=== PATIENT | male | born 1965 | race Two or more races ===

== ENCOUNTER 2021-08-10 17:31 | Emergency (ER) | payer MEDICARE, MEDICAID ==
[~2021-08-10] VITALS: Ht 172.7 cm; Wt 145.1 kg
[2021-08-10] MEDS ORDERED: HYDROcodone-ACET 5/325MG TAB ONE (19:48)
[2021-08-10 21:08] LABS: Basophils # (auto) 0.1 10 ^3/uL (0-0.2); Basophils % (auto) 1.4 % (0.0-2.0); Eosinophils # (auto) 0.2 10 ^3/uL (0-0.8); Eosinophils % (auto) 2.4 % (0.0-7.0); Hematocrit 33.6 % (41.0-53.0); Hemoglobin 11.5 g/dL (13.5-17.5); Lymphocytes # (auto) 1.6 10 ^3/uL (0.4-5.4); Lymphocytes % (auto) 20.1 % (10.0-50.0); Mean Corpuscular Hemoglobin 29.3 pg (28.0-32.0); Mean Corpuscular Hgb Conc. 34.1 g/dL (32.0-36.0); Mean Corpuscular Volume 86.1 fL (80.0-100.0); Monocytes # (auto) 0.5 10 ^3/uL (0-1.3); Monocytes % (auto) 6.7 % (0.0-12.0); Neutrophils # (auto) 5.4 10 ^3/uL (1.6-8.6); Neutrophils % (auto) 69.4 % (37.0-80.0); Nucleated Red Blood Cells % 0.1 %; Red Blood Cells 3.91 10^6/uL (4.5-5.90); Red Cell Distribution Width 16.2 % (11.8-14.3); White Blood Cell 7.8 10^3/uL (4.4-10.8)
[2021-08-10 21:26] LABS: Albumin 3.1 g/dL (3.4-5.0); Calcium 8.4 mg/dL (8.5-10.1); Magnesium 1.9 mg/dL (1.6-2.6); Potassium 4.1 mmol/L (3.5-5.1)
[2021-08-10 21:29] LABS: BUN/Creatinine Ratio 11.6; Bilirubin, Total 0.6 mg/dL (0.2-1.0); Total Protein 8.8 g/dL (6.4-8.2)
[2021-08-10 21:43] LABS: Urine Bacteria FEW /hpf (None Seen); Urine Blood TRACE /uL (Negative); Urine Hyaline Cast FEW /lpf (0 - 2); Urine Mucus FEW (None Seen); Urine Specific Gravity 1.019 (1.001-1.035); Urine WBC 6 /hpf (0 - 3)
[2021-08-10 22:20] VITALS: BP 110/64
[2021-08-10] MEDS ORDERED: cefTRIAXone W LIDOCAINE 1 GM IM IM ONE (22:30)
[2021-08-10] MEDS ORDERED: METR500T PO (22:35)
[2021-08-10] MEDS ORDERED: CIPR-173 PO (22:35)
[2021-08-10] MEDS ORDERED: PERCOT PO (22:35)
[2021-08-10] MEDS ORDERED: ONDA-144 PO (22:35)
[2021-08-10] MEDS ORDERED: HYDROmorphone HCL 2 MG/ML VL/or syr IM ONE (22:45)
[2021-08-10] MEDS ORDERED: KETOROLAC TROMETH 30 MG/ML 1ML VIAL IV ONE (23:00)
[2021-08-10] MEDS ORDERED: cefTRIAXone 1GM/50ML D5W 50 ML IV ONE (23:00)
== END 2021-08-10 23:52 | disposition home or self-care (01) ==
LOC: ER 17:31 → EDBD 17:31 → ER 23:52
DX: K57.30 Diverticulosis of large intestine without perforation or abscess without bleeding (principal); N39.0 Urinary tract infection, site not specified
CPT/HCPCS: 36415; 74176; 80053; 81001; 83690; 83735; 84484; 85025; 93005; 96365; 96375; 99285; J0696; J1885

== ENCOUNTER 2021-08-15 08:37 | Inpatient (IN) | payer MEDICARE, MEDICAID ==
[~2021-08-15] VITALS: Ht 172.7 cm; Wt 139.9 kg
[~2021-08-15 08:37] MED LIST: CIPR-173 PO; METR500T PO; ONDA-144 PO; PERCOT PO
[2021-08-15 10:26] LABS: Basophils # (auto) 0.2 10 ^3/uL (0-0.2); Basophils % (auto) 4.2 % (0.0-2.0); Eosinophils # (auto) 0 10 ^3/uL (0-0.8); Hematocrit 42.1 % (41.0-53.0); Lymphocytes # (auto) 0.6 10 ^3/uL (0.4-5.4); Lymphocytes % (auto) 13.8 % (10.0-50.0); Mean Corpuscular Hemoglobin 32.8 pg (28.0-32.0); Mean Corpuscular Hgb Conc. 33.4 g/dL (32.0-36.0); Mean Corpuscular Volume 98.2 fL (80.0-100.0); Monocytes # (auto) 0.3 10 ^3/uL (0-1.3); Monocytes % (auto) 5.9 % (0.0-12.0); Neutrophils # (auto) 3.3 10 ^3/uL (1.6-8.6); Neutrophils % (auto) 75.1 % (37.0-80.0); Red Blood Cells 4.28 10^6/uL (4.5-5.90); Red Cell Distribution Width 16.2 % (11.8-14.3); White Blood Cell 4.4 10^3/uL (4.4-10.8)
[2021-08-15 10:49] LABS: Potassium 5.1 mmol/L (3.5-5.1)
[2021-08-15 10:58] LABS: Albumin 3.9 g/dL (3.4-5.0); BUN/Creatinine Ratio 6.2; Bilirubin, Total 0.9 mg/dL (0.2-1.0); Calcium 10.2 mg/dL (8.5-10.1)
[2021-08-15] MEDS ORDERED: ENOXAPARIN SOD 100 MG/1 ML SYRINGE SC ONE (13:00)
[2021-08-15] MEDS ORDERED: ONDANSETRON HCL 4 MG/2 ML VIAL IV ONE (13:00)
[2021-08-15] MEDS ORDERED: FUROSEMIDE 40 MG/4 ML VIAL IV ONE (13:00)
[2021-08-15] MEDS ORDERED: MORPHINE SULFATE 4 MG/ML SYR/VIAL IV ONE (13:00)
[2021-08-15] MEDS ORDERED: BUMETANIDE 2.5mg/10ml (0.25 mg/ml) INJ IV ONE (14:00)
[2021-08-15] MEDS ORDERED: NITROGLYCERIN 0.4 MG SL TAB SL PRN (14:15)
[2021-08-15] MEDS ORDERED: MORPHINE SULFATE INJ 2 MG/ml SYRG IV PRN ×2 (14:15→17:45)
[2021-08-15 19:07] LABS: Urine Bacteria NONE SEEN /hpf (None Seen); Urine Blood 2+ /uL (Negative); Urine Mucus FEW (None Seen); Urine Specific Gravity 1.016 (1.001-1.035); Urine WBC 4 /hpf (0 - 3)
[2021-08-15] MEDS ORDERED: LORazepam 0.5 MG TAB PO PRN (20:45)
[2021-08-15] MEDS ORDERED: DOCUSATE SOD 100 MG CAP PO PRN (20:45)
[2021-08-15] MEDS ORDERED: ONDANSETRON HCL 4 MG/2 ML VIAL IV PRN (20:45)
[2021-08-15] MEDS ORDERED: SODIUM CHLORIDE 0.9% 1,000 ML IV SCH (20:45)
[2021-08-15] MEDS ORDERED: hydrALAZINE HCL 20 MG/ML VL IV PRN (20:45)
[2021-08-15] MEDS ORDERED: levoFLOXacin 250MG 50 ML IV ONE (20:45)
[2021-08-15] MEDS ORDERED: BUMETANIDE 2.5mg/10ml (0.25 mg/ml) INJ IV SCH (21:00)
[2021-08-15 21:28] LABS: Magnesium 2.2 mg/dL (1.6-2.6); Phosphorus 4.4 mg/dL (2.5-4.90)
[2021-08-15] MEDS: ATORVASTATIN 20 MG TAB PO SCH (22:09)
[2021-08-15] MEDS: MORPHINE SULFATE INJ 2 MG/ml SYRG IV PRN (22:10)
[2021-08-15 22:58] LABS: INR 1.18 (0.9-1.15); Partial Thromboplastin Time 34.5 sec (23.6-33.0)
[2021-08-15 23:54] VITALS: BP 132/83
[2021-08-16] MEDS: HYDROcodone-ACET 5/325MG TAB PO PRN ×4 (00:50→21:20)
[2021-08-16] MEDS: MORPHINE SULFATE INJ 2 MG/ml SYRG IV PRN ×4 (04:12→23:04)
[2021-08-16 04:40] VITALS: BP 127/79
[2021-08-16 07:56] LABS: Basophils # (auto) 0.1 10 ^3/uL (0-0.2); Basophils % (auto) 0.9 % (0.0-2.0); Eosinophils # (auto) 0.1 10 ^3/uL (0-0.8); Eosinophils % (auto) 1.8 % (0.0-7.0); Hematocrit 31.7 % (41.0-53.0); Hemoglobin 10.9 g/dL (13.5-17.5); Lymphocytes # (auto) 1.5 10 ^3/uL (0.4-5.4); Lymphocytes % (auto) 25.5 % (10.0-50.0); Mean Corpuscular Hemoglobin 29.6 pg (28.0-32.0); Mean Corpuscular Hgb Conc. 34.3 g/dL (32.0-36.0); Mean Corpuscular Volume 86.2 fL (80.0-100.0); Monocytes # (auto) 0.6 10 ^3/uL (0-1.3); Monocytes % (auto) 10.3 % (0.0-12.0); Neutrophils # (auto) 3.6 10 ^3/uL (1.6-8.6); Neutrophils % (auto) 61.5 % (37.0-80.0); Red Blood Cells 3.68 10^6/uL (4.5-5.90); Red Cell Distribution Width 15.7 % (11.8-14.3); White Blood Cell 5.8 10^3/uL (4.4-10.8)
[2021-08-16 08:00] VITALS: BP_SYST 126; BP_SYST 134; BP_DIAS 81; BP_DIAS 85
[2021-08-16 08:08] LABS: INR 1.21 (0.9-1.15); Partial Thromboplastin Time 34.5 sec (23.6-33.0)
[2021-08-16 08:22] LABS: Thyroid Stimulating Hormone 10.4 uIU/mL (0.358-3.74)
[2021-08-16 09:24] LABS: Anion Gap 9 (5-15); Blood Urea Nitrogen 33 mg/dL (7-18); Carbon Dioxide 25 mmol/L (21-32); Chloride 102 mmol/L (98-107); Glucose 92 mg/dL (74-106); Potassium 3.7 mmol/L (3.5-5.1); Sodium 136 mmol/L (136-145)
[2021-08-16 09:25] LABS: GFR African American 31 mL/min; GFR Non-African American 26 mL/min
[2021-08-16 09:27] LABS: Alanine Aminotransferase 13 U/L (16-61); Alkaline Phosphatase 78 U/L (45-117); Aspartate Aminotransferase 12 U/L (15-37); Bilirubin, Total 0.3 mg/dL (0.2-1.0); Calcium 8.8 mg/dL (8.5-10.1); Phosphorus 4.7 mg/dL (2.5-4.90)
[2021-08-16 09:28] LABS: Albumin 2.8 g/dL (3.4-5.0); Cholesterol 147 mg/dL (< 200); Creatine Kinase IFCC 99 U/L (39-308); HDL Cholesterol 32 mg/dL (40-59); LDL Cholesterol 90 mg/dL (< 100); Lipase 926 U/L (73-393); Magnesium 2.2 mg/dL (1.6-2.6); Triglycerides 150 mg/dL (< 150)
[2021-08-16 09:29] LABS: CRP High Sensitivity 7.93 mg/dL (< 0.3); Uric Acid 12.6 mg/dL (3.5-7.2)
[2021-08-16] MEDS: ASPirin 81 mg TAB PO SCH (09:48)
[2021-08-16] MEDS: FAMOTIDINE (10MG/ML) 2ML VL IV SCH (10:00)
[2021-08-16] MEDS ORDERED: prednisoLONE 15 MG/5 ML ORAL UD PO SCH (10:00)
[2021-08-16] MEDS: SODIUM CHLORIDE 0.9% 1,000 ML IV SCH ×2 (10:28→21:19)
[2021-08-16] MEDS ORDERED: ENOXAPARIN SOD 30 MG/0.3 ML SYRINGE SC SCH (11:00)
[2021-08-16 11:03] LABS: Urine Bacteria FEW /hpf (None Seen); Urine Blood TRACE /uL (Negative); Urine Hyaline Cast FEW /lpf (0 - 2); Urine WBC 1 /hpf (0 - 3)
[2021-08-16 11:16] LABS: Alcohol, Urine < 3.0 mg/dL (0-10); Amphetamine Screen, Urine NEGATIVE (NEGATIVE); Barbiturate Scree,Urine NEGATIVE (NEGATIVE); Benzodiazephine Screen, Urine NEGATIVE (NEGATIVE); Cannabinoid Screen, Urine NEGATIVE (NEGATIVE); Cocaine Screen, Urine NEGATIVE (NEGATIVE); Opiate Scree,Urine POSITIVE (NEGATIVE); Phencyclidine Screen, Urine NEGATIVE (NEGATIVE); Protein, Urine 23.3 mg/dL (0.0-11.9)
[2021-08-16 11:17] LABS: Creatinine, Urine 83 mg/dL (30.0-125.0); Sodium Urine 66 mmol/L (40-220)
[2021-08-16] MEDS ORDERED: cefTRIAXone 1GM/50ML D5W 50 ML IV ONE (11:45)
[2021-08-16 12:00] VITALS: BP 105/67
[2021-08-16] MEDS ORDERED: GABAPENTIN 300 MG CAP PO SCH (14:00)
[2021-08-16 16:00] VITALS: BP 117/79
[2021-08-16 20:00] VITALS: BP 134/81
[2021-08-16] MEDS: ATORVASTATIN 20 MG TAB PO SCH (21:20)
[2021-08-16 22:00] VITALS: BP 128/82
[2021-08-17 04:34] VITALS: BP 104/75
[2021-08-17] MEDS: HYDROcodone-ACET 5/325MG TAB PO PRN ×2 (05:25→22:27)
[2021-08-17] MEDS: SODIUM CHLORIDE 0.9% 1,000 ML IV SCH ×2 (05:25→17:41)
[2021-08-17 05:31] LABS: Basophils # (auto) 0 10 ^3/uL (0-0.2); Basophils % (auto) 0.8 % (0.0-2.0); Eosinophils # (auto) 0.2 10 ^3/uL (0-0.8); Eosinophils % (auto) 3.1 % (0.0-7.0); Hematocrit 30.9 % (41.0-53.0); Hemoglobin 10.7 g/dL (13.5-17.5); Lymphocytes % (auto) 16.9 % (10.0-50.0); Mean Corpuscular Hemoglobin 29.8 pg (28.0-32.0); Mean Corpuscular Hgb Conc. 34.5 g/dL (32.0-36.0); Mean Corpuscular Volume 86.3 fL (80.0-100.0); Monocytes # (auto) 0.5 10 ^3/uL (0-1.3); Monocytes % (auto) 9.2 % (0.0-12.0); Neutrophils # (auto) 4.1 10 ^3/uL (1.6-8.6); Nucleated Red Blood Cells % 0.1 %; Red Blood Cells 3.58 10^6/uL (4.5-5.90); Red Cell Distribution Width 15.5 % (11.8-14.3); White Blood Cell 5.8 10^3/uL (4.4-10.8)
[2021-08-17 05:57] LABS: BUN/Creatinine Ratio 19.9; Calcium 8.7 mg/dL (8.5-10.1); Potassium 3.7 mmol/L (3.5-5.1); Uric Acid 11.3 mg/dL (3.5-7.2)
[2021-08-17 08:43] VITALS: BP 120/82
[2021-08-17] MEDS ORDERED: cefTRIAXone 1GM/50ML D5W 50 ML IV SCH (09:00)
[2021-08-17] MEDS ORDERED: ALLOPURINOL 300 MG TAB PO ONE (09:45)
[2021-08-17] MEDS: FAMOTIDINE (10MG/ML) 2ML VL IV SCH (10:00)
[2021-08-17] MEDS: ASPirin 81 mg TAB PO SCH (10:23)
[2021-08-17] MEDS: MORPHINE SULFATE INJ 2 MG/ml SYRG IV PRN ×2 (11:10→17:05)
[2021-08-17 12:05] LABS: Hepatitis C Antibody Negative (Negative)
[2021-08-17 12:06] LABS: Hepatitis A Ab IgM Negative; Hepatitis B Core IgM Negative
[2021-08-17 12:42] VITALS: BP 133/80
[2021-08-17] MEDS: ALLOPURINOL 300 MG TAB PO SCH (12:57)
[2021-08-17] MEDS: methylPREDNISolone SOD SUCC 40 MG/ML VL IV SCH ×2 (12:57→22:08)
[2021-08-17] MEDS ORDERED: LEVOTHYROXINE SODIUM 50 MCG TAB PO ONE (14:00)
[2021-08-17 16:15] VITALS: BP 150/81
[2021-08-17 22:00] VITALS: BP 132/83
[2021-08-17] MEDS ORDERED: levoFLOXacin 250MG 50 ML IV SCH (22:00)
[2021-08-17] MEDS: ATORVASTATIN 20 MG TAB PO SCH (22:08)
[2021-08-18] MEDS: MORPHINE SULFATE INJ 2 MG/ml SYRG IV PRN ×3 (00:20→18:51)
[2021-08-18] MEDS: SODIUM CHLORIDE 0.9% 1,000 ML IV SCH ×2 (01:15→11:52)
[2021-08-18 05:00] VITALS: BP 134/85
[2021-08-18 05:56] LABS: Anion Gap 8 (5-15); BUN/Creatinine Ratio 23.9; Blood Urea Nitrogen 26 mg/dL (7-18); Calcium 8.5 mg/dL (8.5-10.1); Carbon Dioxide 20 mmol/L (21-32); Chloride 107 mmol/L (98-107); GFR African American 91 mL/min; GFR Non-African American 75 mL/min; Glucose 144 mg/dL (74-106); Potassium 4.9 mmol/L (3.5-5.1); Sodium 135 mmol/L (136-145)
[2021-08-18] MEDS: LEVOTHYROXINE SODIUM 50 MCG TAB PO SCH (06:34)
[2021-08-18 09:00] VITALS: BP 147/85
[2021-08-18] MEDS: HYDROcodone-ACET 5/325MG TAB PO PRN ×2 (09:12→21:17)
[2021-08-18] MEDS: methylPREDNISolone SOD SUCC 40 MG/ML VL IV SCH (09:12)
[2021-08-18] MEDS: ASPirin 81 mg TAB PO SCH (09:12)
[2021-08-18] MEDS: FAMOTIDINE (10MG/ML) 2ML VL IV SCH (09:19)
[2021-08-18] MEDS ORDERED: levoFLOXacin 500MG 100 ML IV SCH (10:00)
[2021-08-18 13:00] VITALS: BP 151/82
[2021-08-18 17:00] VITALS: BP 153/80
[2021-08-18] MEDS: ATORVASTATIN 20 MG TAB PO SCH (21:17)
[2021-08-18 22:00] VITALS: BP 145/85
[2021-08-19] MEDS: MORPHINE SULFATE INJ 2 MG/ml SYRG IV PRN ×5 (01:03→22:15)
[2021-08-19 05:00] VITALS: BP 149/83
[2021-08-19] MEDS: LEVOTHYROXINE SODIUM 50 MCG TAB PO SCH (05:41)
[2021-08-19 07:29] LABS: BUN/Creatinine Ratio 30.1; Calcium 8.7 mg/dL (8.5-10.1)
[2021-08-19 09:00] VITALS: BP 134/83
[2021-08-19] MEDS: levoFLOXacin 500 MG TAB PO SCH (09:44)
[2021-08-19] MEDS: ASPirin 81 mg TAB PO SCH (09:44)
[2021-08-19] MEDS: predniSONE 20 MG TAB PO SCH (09:44)
[2021-08-19] MEDS: FAMOTIDINE 20 MG TAB PO SCH (09:45)
[2021-08-19] MEDS: HYDROcodone-ACET 5/325MG TAB PO PRN ×2 (09:45→16:57)
[2021-08-19] MEDS: ALLOPURINOL 300 MG TAB PO SCH (09:45)
[2021-08-19 13:00] VITALS: BP 149/89
[2021-08-19 17:00] VITALS: BP 123/67
[2021-08-19] MEDS: ATORVASTATIN 20 MG TAB PO SCH (20:23)
[2021-08-19 22:00] VITALS: BP 156/84
[2021-08-20 05:28] VITALS: BP 144/99
[2021-08-20] MEDS: MORPHINE SULFATE INJ 2 MG/ml SYRG IV PRN ×3 (06:37→22:21)
[2021-08-20] MEDS: LEVOTHYROXINE SODIUM 50 MCG TAB PO SCH (06:37)
[2021-08-20 06:53] LABS: Calcium 8.7 mg/dL (8.5-10.1); Potassium 3.7 mmol/L (3.5-5.1)
[2021-08-20 09:00] VITALS: BP 148/85
[2021-08-20] MEDS: levoFLOXacin 500 MG TAB PO SCH (10:00)
[2021-08-20] MEDS: ASPirin 81 mg TAB PO SCH (10:00)
[2021-08-20] MEDS: predniSONE 20 MG TAB PO SCH (10:01)
[2021-08-20] MEDS: FAMOTIDINE 20 MG TAB PO SCH (10:01)
[2021-08-20] MEDS: ALLOPURINOL 300 MG TAB PO SCH (10:01)
[2021-08-20] MEDS: HYDROcodone-ACET 5/325MG TAB PO PRN (11:36)
[2021-08-20 12:30] VITALS: BP 130/85
[2021-08-20 17:00] VITALS: BP 135/81
[2021-08-20] MEDS: ATORVASTATIN 20 MG TAB PO SCH (21:17)
[2021-08-20 22:00] VITALS: BP 147/90
[2021-08-21 05:00] VITALS: BP 122/78
[2021-08-21 06:09] LABS: Calcium 8.4 mg/dL (8.5-10.1); Potassium 3.7 mmol/L (3.5-5.1)
[2021-08-21 06:11] LABS: BUN/Creatinine Ratio 28.8
[2021-08-21] MEDS: LEVOTHYROXINE SODIUM 50 MCG TAB PO SCH (06:12)
[2021-08-21 09:00] VITALS: BP 124/76
[2021-08-21] MEDS: ASPirin 81 mg TAB PO SCH (10:23)
[2021-08-21] MEDS: levoFLOXacin 500 MG TAB PO SCH (10:23)
[2021-08-21] MEDS: predniSONE 20 MG TAB PO SCH (10:23)
[2021-08-21] MEDS: ALLOPURINOL 300 MG TAB PO SCH (10:24)
[2021-08-21] MEDS: FAMOTIDINE 20 MG TAB PO SCH (10:24)
[2021-08-21] MEDS: MORPHINE SULFATE INJ 2 MG/ml SYRG IV PRN (10:48)
[2021-08-21] MEDS ORDERED: ALL300T PO (12:36)
[2021-08-21] MEDS ORDERED: LEV50T PO (12:36)
[2021-08-21] MEDS ORDERED: PRED20TA2 PO (12:36)
[2021-08-21] MEDS ORDERED: PRED10TA PO (12:36)
[2021-08-21 13:01] VITALS: BP 136/93
[2021-08-21 17:00] VITALS: BP 131/95
[2021-08-21 18:40] VITALS: BP 134/81
== END 2021-08-21 19:00 | disposition home health service (06) | DRG 682 ==
LOC: ER 08:37 → EDBD 08:37 → TELE 14:10 → TELE-EAST 23:37
PROVIDERS: ADMIT Hospitalist; ATTEND Internal Medicine
DX: N17.0 Acute kidney failure with tubular necrosis (principal); J96.00 Acute respiratory failure, unspecified whether with hypoxia or hypercapnia; I50.43 Acute on chronic combined systolic (congestive) and diastolic (congestive) heart failure; F11.20 Opioid dependence, uncomplicated; N39.0 Urinary tract infection, site not specified; Z68.41 Body mass index [BMI] 40.0-44.9, adult; I13.2 Hypertensive heart and chronic kidney disease with heart failure and with stage 5 chronic kidney disease, or end stage renal disease; N18.5 Chronic kidney disease, stage 5; M54.50 Low back pain, unspecified; D69.6 Thrombocytopenia, unspecified; E66.01 Morbid (severe) obesity due to excess calories; K76.0 Fatty (change of) liver, not elsewhere classified; Z20.822 Contact with and (suspected) exposure to COVID-19; E78.5 Hyperlipidemia, unspecified; G62.9 Polyneuropathy, unspecified; G89.4 Chronic pain syndrome; K40.20 Bilateral inguinal hernia, without obstruction or gangrene, not specified as recurrent; M19.90 Unspecified osteoarthritis, unspecified site; M1A.9XX0 Chronic gout, unspecified, without tophus (tophi); N13.9 Obstructive and reflux uropathy, unspecified; E03.9 Hypothyroidism, unspecified; Z79.899 Other long term (current) drug therapy; Z80.42 Family history of malignant neoplasm of prostate; Z83.3 Family history of diabetes mellitus
CPT/HCPCS: 36415; 71045; 74176; 76700; 80048; 80053; 80061; 80074; 80307; 81001; 82550; 82570; 82728; 83036; 83516; 83615; 83690; 83735; 83880; 83970; 84100; 84156; 84300; 84439; 84443; 84484; 84550; 85025; 85379; 85610; 85652; 85730; 86141; 86160; 86200; 86225; 86235; 86431; 87040; 87086; 87804; 93005; 93306; 96374; 96375; 97116; 97163; 97530; 99291; G0378; J0696; J1956; J2405

== ENCOUNTER 2023-09-01 05:15 | Inpatient (IN) | payer MEDICARE, MEDICAID ==
[~2023-09-01] VITALS: Ht 172.7 cm; Wt 150.5 kg
[2023-09-01] VITALS (7 sets, daily range): BP systolic 99–164; BP diastolic 72–94; PULSE 71–94; RESP 16–22; TEMP 97.7–98.3; O2SAT 2–98
[~2023-09-01 05:15] MED LIST changes: +ALL300T PO; +LEV50T PO; +PRED10TA PO; +PRED20TA2 PO
[2023-09-01 07:21] LABS: Basophils # (auto) 0.1 10 ^3/uL (0-0.2); Eosinophils # (auto) 0.2 10 ^3/uL (0-0.8); Eosinophils % (auto) 2.2 % (0.0-7.0); Hematocrit 40.6 % (41.0-53.0); Hemoglobin 13.7 g/dL (13.5-17.5); Lymphocytes # (auto) 1.5 10 ^3/uL (0.4-5.4); Lymphocytes % (auto) 19.7 % (10.0-50.0); Mean Corpuscular Hemoglobin 29.2 pg (28.0-32.0); Mean Corpuscular Hgb Conc. 33.7 g/dL (32.0-36.0); Mean Corpuscular Volume 86.7 fL (80.0-100.0); Monocytes # (auto) 0.6 10 ^3/uL (0-1.3); Monocytes % (auto) 8.2 % (0.0-12.0); Neutrophils # (auto) 5.3 10 ^3/uL (1.6-8.6); Neutrophils % (auto) 68.9 % (37.0-80.0); Red Blood Cells 4.69 10^6/uL (4.5-5.90); Red Cell Distribution Width 16.5 % (11.8-14.3); White Blood Cell 7.7 10^3/uL (4.4-10.8)
[2023-09-01] MEDS: ASPirin 81 mg TAB PO ONE (07:34)
[2023-09-01] MEDS: NITROGLYCERIN 2% OINT 1GM PKG TD ONE (07:39)
[2023-09-01 07:40] LABS: Alanine Aminotransferase 11 U/L (7-40); Albumin 4.4 g/dL (3.2-4.8); Alkaline Phosphatase 102 U/L (46-116); Anion Gap 6 (5-15); Aspartate Aminotransferase < 8 U/L (13-40); BUN/Creatinine Ratio 14.5 (10.0-20.0); Blood Urea Nitrogen 22 mg/dL (9-23); Calcium 9.2 mg/dL (8.5-10.1); Carbon Dioxide 26 mmol/L (20-30); Chloride 104 mmol/L (98-107); Glucose 131 mg/dL (74-106); Magnesium 2.1 mg/dL (1.6-2.6); Potassium 4.2 mmol/L (3.5-5.1); Sodium 136 mmol/L (136-145)
[2023-09-01 07:41] LABS: Bilirubin, Total 0.7 mg/dL (0.2-1.0); Total Protein 8.7 g/dL (5.7-8.2)
[2023-09-01 07:56] LABS: INR 1.13 (0.9-1.15); Partial Thromboplastin Time 29.3 SEC (24.5-34.5); Prothrombin Time 11.9 sec (9.3-11.8)
[2023-09-01] MEDS: IOHEXOL 350 MG/ML 100ML IJ ONE (09:04)
[2023-09-01] MEDS: ONDANSETRON HCL 4 MG/2 ML VIAL IV ONE (09:31)
[2023-09-01] MEDS: NYSTATIN TOPICAL POWDER 15GM TOP ONE (10:15)
[2023-09-01] MEDS: LEVOTHYROXINE SODIUM 25 MCG TAB PO ONE (10:15)
[2023-09-01] MEDS: CLINDAMYCIN 600MG IV 50 ML IV SCH (10:15)
[2023-09-01] MEDS ORDERED: NITROGLYCERIN 0.4 MG SL TAB SL PRN (10:45)
[2023-09-01] MEDS ORDERED: hydrALAZINE HCL 20 MG/ML VL IV PRN (10:45)
[2023-09-01] MEDS ORDERED: MORPHINE SULFATE INJ 2 MG/ml SYRG IV PRN ×2 (10:45)
[2023-09-01 11:02] LABS: Triglycerides 110 mg/dL (< 150)
[2023-09-01 11:03] LABS: LDL Cholesterol 121 mg/dL (< 100)
[2023-09-01 11:04] LABS: Cholesterol 161 mg/dL (< 200); HDL Cholesterol 31 mg/dL (40-59)
[2023-09-01] MEDS: SODIUM CHLORIDE 0.9% 1,000 ML IV SCH (11:12)
[2023-09-01 11:35] LABS: Urine Bacteria None Seen /hpf (None Seen)
[2023-09-01 11:44] LABS: Urine Blood Negative /uL (Negative); Urine Clarity Clear (Clear); Urine Color Yellow (Yellow); Urine Hyaline Cast FEW /lpf (0 - 2); Urine Mucus FEW (None Seen); Urine Protein, UAD TRACE (Negative); Urine Urobilinogen 4 mg/dL (Negative); Urine WBC 2 /hpf (0 - 3); Urine pH 5.5 (5.0-9.0)
[2023-09-01] MEDS ORDERED: INDO50CA82 PO (15:42)
[2023-09-01] MEDS: NYSTATIN TOPICAL POWDER 15GM TOP SCH (22:00)
[2023-09-01] MEDS ORDERED: OXYCODONE W/ ACETAMINOPHEN 5/325MG TABLET PO SCH (22:00)
[2023-09-01] MEDS: ATORVASTATIN 20 MG TAB PO SCH (22:04)
[2023-09-01] MEDS: HYDROcodone-ACET 5/325MG TAB PO PRN (22:09)
[2023-09-02] VITALS (10 sets, daily range): BP systolic 128–177; BP diastolic 66–111; PULSE 73–92; RESP 18–20; TEMP 97.8–98.8; O2SAT 95–100
[2023-09-02] MEDS: LEVOTHYROXINE SODIUM 25 MCG TAB PO SCH (05:36)
[2023-09-02] MEDS: ONDANSETRON HCL 4 MG/2 ML VIAL IV PRN (05:41)
[2023-09-02 06:03] LABS: Basophils # (auto) 0 10 ^3/uL (0-0.2); Basophils % (auto) 0.5 % (0.0-2.0); Eosinophils # (auto) 0.4 10 ^3/uL (0-0.8); Eosinophils % (auto) 5.9 % (0.0-7.0); Hematocrit 37.7 % (41.0-53.0); Hemoglobin 12.5 g/dL (13.5-17.5); Lymphocytes # (auto) 1.9 10 ^3/uL (0.4-5.4); Lymphocytes % (auto) 31.8 % (10.0-50.0); Mean Corpuscular Hemoglobin 28.8 pg (28.0-32.0); Mean Corpuscular Hgb Conc. 33.3 g/dL (32.0-36.0); Mean Corpuscular Volume 86.6 fL (80.0-100.0); Monocytes # (auto) 0.5 10 ^3/uL (0-1.3); Neutrophils # (auto) 3.2 10 ^3/uL (1.6-8.6); Neutrophils % (auto) 53.8 % (37.0-80.0); Nucleated Red Blood Cells % 0.1 %; Red Blood Cells 4.35 10^6/uL (4.5-5.90); Red Cell Distribution Width 16.4 % (11.8-14.3)
[2023-09-02 06:17] LABS: Alkaline Phosphatase 91 U/L (46-116); BUN/Creatinine Ratio 16.9 (10.0-20.0); Blood Urea Nitrogen 23 mg/dL (9-23); Calcium 8.7 mg/dL (8.5-10.1); Chloride 106 mmol/L (98-107); Glucose 98 mg/dL (74-106); Potassium 4.1 mmol/L (3.5-5.1)
[2023-09-02 06:18] LABS: Aspartate Aminotransferase 8 U/L (13-40); Bilirubin, Total 0.5 mg/dL (0.2-1.0); Total Protein 7.9 g/dL (5.7-8.2)
[2023-09-02 06:20] LABS: Carbon Dioxide 26 mmol/L (20-30)
[2023-09-02 06:26] LABS: Alanine Aminotransferase < 9 U/L (7-40)
[2023-09-02 07:02] LABS: Anion Gap 6 (5-15); Sodium 138 mmol/L (136-145)
[2023-09-02] MEDS: ALLOPURINOL 100 MG TAB PO SCH (08:59)
[2023-09-02] MEDS: ACETAMINOPHEN 325 MG TAB PO PRN (09:00)
[2023-09-02] MEDS: ASPirin 81 mg TAB PO SCH (09:01)
[2023-09-02] MEDS: ENOXAPARIN SOD 40 MG/0.4 ML SYRINGE SC SCH (09:03)
[2023-09-02 10:34] LABS: Base Excess -2.3 mmol/L (-2.0-2.0)
[2023-09-02 18:49] LABS: Free T4 (Free Thyroxine) 1.03 ng/dL (0.89-1.76); T3 Total 0.89 ng/mL (0.60-1.81)
[2023-09-03] VITALS (8 sets, daily range): BP systolic 117–153; BP diastolic 68–98; PULSE 80–99; RESP 18–20; TEMP 97.6–98.7; O2SAT 94–100
[2023-09-03 06:29] LABS: Anion Gap 6 (5-15); Carbon Dioxide 27 mmol/L (20-30); Chloride 104 mmol/L (98-107); Potassium 4.4 mmol/L (3.5-5.1); Sodium 137 mmol/L (136-145)
[2023-09-03 06:30] LABS: Calcium 9.3 mg/dL (8.5-10.1)
[2023-09-03 06:35] LABS: BUN/Creatinine Ratio 13.4 (10.0-20.0); Blood Urea Nitrogen 15 mg/dL (9-23); Glucose 99 mg/dL (74-106)
[2023-09-03 07:26] LABS: Basophils # (auto) 0.1 10 ^3/uL (0-0.2); Basophils % (auto) 1.1 % (0.0-2.0); Eosinophils # (auto) 0.5 10 ^3/uL (0-0.8); Eosinophils % (auto) 8.3 % (0.0-7.0); Hematocrit 39.8 % (41.0-53.0); Hemoglobin 13.1 g/dL (13.5-17.5); Lymphocytes # (auto) 1.7 10 ^3/uL (0.4-5.4); Lymphocytes % (auto) 26.1 % (10.0-50.0); Mean Corpuscular Hgb Conc. 32.9 g/dL (32.0-36.0); Monocytes # (auto) 0.4 10 ^3/uL (0-1.3); Monocytes % (auto) 6.6 % (0.0-12.0); Neutrophils # (auto) 3.7 10 ^3/uL (1.6-8.6); Neutrophils % (auto) 57.9 % (37.0-80.0); Nucleated Red Blood Cells % 0.1 %; Red Blood Cells 4.52 10^6/uL (4.5-5.90); Red Cell Distribution Width 16.7 % (11.8-14.3); White Blood Cell 6.5 10^3/uL (4.4-10.8)
[2023-09-03] MEDS ORDERED: VANCOMYCIN PER PHARMACY 0 MG IV SCH (14:30)
[2023-09-03] MEDS ORDERED: VANCOMYCIN 1GM/200ML 200 ML IV SCH (15:00)
[2023-09-03] MEDS: VANCOMYCIN 1GM/200ML 200 ML IV SCH (20:35)
[2023-09-04 01:00] VITALS: BP 116/79; PULSE 93; RESP 21; TEMP 97.8; O2SAT 98
[2023-09-04 05:41] LABS: Basophils # (auto) 0.1 10 ^3/uL (0-0.2); Basophils % (auto) 0.9 % (0.0-2.0); Eosinophils # (auto) 0.6 10 ^3/uL (0-0.8); Hematocrit 37.6 % (41.0-53.0); Hemoglobin 12.5 g/dL (13.5-17.5); Lymphocytes # (auto) 1.9 10 ^3/uL (0.4-5.4); Lymphocytes % (auto) 26.8 % (10.0-50.0); Mean Corpuscular Hgb Conc. 33.3 g/dL (32.0-36.0); Monocytes # (auto) 0.4 10 ^3/uL (0-1.3); Neutrophils # (auto) 4.1 10 ^3/uL (1.6-8.6); Neutrophils % (auto) 58.3 % (37.0-80.0); Red Blood Cells 4.32 10^6/uL (4.5-5.90); Red Cell Distribution Width 16.3 % (11.8-14.3)
[2023-09-04 09:00] VITALS: BP 137/93; PULSE 99; RESP 22; TEMP 98.2; O2SAT 98
[2023-09-04] MEDS ORDERED: ATOR20TA50 PO (10:49)
[2023-09-04] MEDS ORDERED: BACDST PO (10:49)
[2023-09-04] MEDS ORDERED: ASPI-325 PO (10:49)
[2023-09-04] MEDS ORDERED: LEV25T PO (10:49)
[2023-09-04 13:00] VITALS: BP 130/71; PULSE 90; RESP 20; TEMP 98.5; O2SAT 97
[2023-09-04 17:00] VITALS: BP 117/75; PULSE 91; RESP 20; TEMP 97.4; O2SAT 98
[2023-09-04 20:00] VITALS: O2SAT 96
[2023-09-04 21:00] VITALS: BP 130/87; PULSE 92; RESP 18; TEMP 98.3; O2SAT 100
[2023-09-04] MEDS: VANCOMYCIN 1GM/200ML 200 ML IV SCH (22:16)
[2023-09-05 01:00] VITALS: BP 105/65; PULSE 101; RESP 19; TEMP 98; O2SAT 100
[2023-09-05 05:00] VITALS: BP 102/75; PULSE 104; RESP 18; TEMP 97.8; O2SAT 94
[2023-09-05 08:00] VITALS: PULSE 93; RESP 18; O2SAT 92
[2023-09-05 09:00] VITALS: BP 111/73; PULSE 93; RESP 18; TEMP 98.5; O2SAT 92
[2023-09-05 12:29] VITALS: PULSE 93; RESP 18; O2SAT 92
[2023-09-05 13:00] VITALS: BP 141/89; PULSE 111; RESP 24; TEMP 98.4; O2SAT 93
== END 2023-09-05 16:30 | disposition home or self-care (01) | DRG 602 ==
LOC: ER 05:15 → EDBD 05:15 → TELE 10:43 → TELE-EAST 11:51 → EAST 09-03 01:29
PROVIDERS: ADMIT Internal Medicine; ATTEND Emergency Medicine
DX: L03.314 Cellulitis of groin (principal); N17.0 Acute kidney failure with tubular necrosis; L02.415 Cutaneous abscess of right lower limb; E66.2 Morbid (severe) obesity with alveolar hypoventilation; Z68.43 Body mass index [BMI] 50.0-59.9, adult; I25.10 Atherosclerotic heart disease of native coronary artery without angina pectoris; E03.9 Hypothyroidism, unspecified; G89.4 Chronic pain syndrome; L30.4 Erythema intertrigo; M06.9 Rheumatoid arthritis, unspecified; E11.22 Type 2 diabetes mellitus with diabetic chronic kidney disease; M10.9 Gout, unspecified; N18.32 Chronic kidney disease, stage 3b; Z79.899 Other long term (current) drug therapy; Z79.2 Long term (current) use of antibiotics; Z83.3 Family history of diabetes mellitus; Z80.42 Family history of malignant neoplasm of prostate
CPT/HCPCS: 36415; 36600; 71045; 71275; 76881; 80048; 80053; 80061; 80202; 81001; 82565; 82805; 83036; 83605; 83735; 83880; 84439; 84443; 84480; 84484; 85025; 85379; 85610; 85730; 87040; 87077; 87186; 87205; 93005; 93306; 93970; 96374; G0378; J2405; J3490

== ENCOUNTER 2023-10-27 13:26 | Inpatient (IN) | payer MEDICARE, MEDICAID ==
[~2023-10-27] VITALS: Ht 175.3 cm; Wt 143.0 kg
[~2023-10-27 13:26] MED LIST changes: +ASPI-325 PO; +ATOR20TA50 PO; +BACDST PO; -CIPR-173 PO; +INDO50CA82 PO; +LEV25T PO; -LEV50T PO; -METR500T PO; -ONDA-144 PO; -PERCOT PO; -PRED10TA PO; -PRED20TA2 PO
[2023-10-27 13:52] LABS: Urine Bacteria None Seen /hpf (None Seen)
[2023-10-27 13:59] LABS: Urine Blood TRACE /uL (Negative); Urine Clarity Clear (Clear); Urine Color Yellow (Yellow); Urine Protein, UAD 1+ (Negative); Urine Specific Gravity 1.017 (1.001-1.035); Urine Urobilinogen 6 mg/dL (Negative); Urine WBC 2 /hpf (0 - 3)
[2023-10-27 14:11] VITALS: PULSE 117; RESP 12; O2SAT 95
[2023-10-27] MEDS: ONDANSETRON HCL 4 MG/2 ML VIAL IV ONE ×2 (14:25→15:57)
[2023-10-27] MEDS: MORPHINE SULFATE 4 MG/ML SYR/VIAL IV ONE (14:26)
[2023-10-27 14:27] LABS: Basophils # (auto) 0.1 10 ^3/uL (0-0.2); Basophils % (auto) 0.4 % (0.0-2.0); Eosinophils # (auto) 0 10 ^3/uL (0-0.8); Eosinophils % (auto) 0.1 % (0.0-7.0); Hematocrit 38.7 % (41.0-53.0); Hemoglobin 12.8 g/dL (13.5-17.5); Lymphocytes # (auto) 0.9 10 ^3/uL (0.4-5.4); Lymphocytes % (auto) 5.5 % (10.0-50.0); Mean Corpuscular Hemoglobin 28.9 pg (28.0-32.0); Mean Corpuscular Hgb Conc. 33.1 g/dL (32.0-36.0); Mean Corpuscular Volume 87.3 fL (80.0-100.0); Monocytes # (auto) 0.8 10 ^3/uL (0-1.3); Neutrophils # (auto) 14.9 10 ^3/uL (1.6-8.6); Nucleated Red Blood Cells % 0.1 %; Platelet Count (auto) 349 10^3/uL (140-450); Red Blood Cells 4.44 10^6/uL (4.5-5.90); Red Cell Distribution Width 16.9 % (11.8-14.3); White Blood Cell 16.8 10^3/uL (4.4-10.8)
[2023-10-27] MEDS: cefTRIAXone 1GM/50ML D5W 50 ML IV ONE (14:41)
[2023-10-27 14:42] LABS: Alanine Aminotransferase 11 U/L (7-40); Albumin 4.8 g/dL (3.2-4.8); Alkaline Phosphatase 110 U/L (46-116); Anion Gap 13 (5-15); Aspartate Aminotransferase 12 U/L (13-40); BUN/Creatinine Ratio 8.3 (10.0-20.0); Bilirubin, Total 1.5 mg/dL (0.2-1.0); Blood Urea Nitrogen 13 mg/dL (9-23); Calcium 9.3 mg/dL (8.7-10.4); Carbon Dioxide 20 mmol/L (20-30); Chloride 100 mmol/L (98-107); Glucose 160 mg/dL (74-106); Lipase 31 U/L (12-53); Potassium 3.8 mmol/L (3.5-5.1); Sodium 133 mmol/L (136-145)
[2023-10-27] MEDS: HYDROmorphone HCL 2 MG/ML VL/or syr IV ONE ×2 (15:56→17:45)
[2023-10-27] MEDS ORDERED: ONDANSETRON HCL 4 MG/2 ML VIAL IV PRN (18:45)
[2023-10-27] MEDS: SODIUM CHLORIDE 0.9% 1,000 ML IV SCH (18:47)
[2023-10-27 19:20] LABS: Triglycerides 125 mg/dL (< 150)
[2023-10-27 19:21] LABS: LDL Cholesterol 115 mg/dL (< 100)
[2023-10-27 19:22] LABS: Cholesterol 169 mg/dL (< 200); HDL Cholesterol 32 mg/dL (40-59)
[2023-10-27] MEDS: HYDROcodone-ACET 5/325MG TAB PO PRN (20:13)
[2023-10-27] MEDS: ATORVASTATIN 20 MG TAB PO SCH (22:00)
[2023-10-27] MEDS: MORPHINE SULFATE INJ 2 MG/ml SYRG IV PRN (23:04)
[2023-10-28 03:32] LABS: Basophils # (auto) 0.1 10 ^3/uL (0-0.2); Basophils % (auto) 0.6 % (0.0-2.0); Eosinophils # (auto) 0.1 10 ^3/uL (0-0.8); Eosinophils % (auto) 0.8 % (0.0-7.0); Hematocrit 35.8 % (41.0-53.0); Hemoglobin 11.9 g/dL (13.5-17.5); Lymphocytes # (auto) 1.4 10 ^3/uL (0.4-5.4); Lymphocytes % (auto) 14.7 % (10.0-50.0); Mean Corpuscular Hemoglobin 29.2 pg (28.0-32.0); Mean Corpuscular Hgb Conc. 33.2 g/dL (32.0-36.0); Mean Corpuscular Volume 87.8 fL (80.0-100.0); Monocytes # (auto) 0.8 10 ^3/uL (0-1.3); Monocytes % (auto) 8.6 % (0.0-12.0); Neutrophils # (auto) 7.3 10 ^3/uL (1.6-8.6); Neutrophils % (auto) 75.3 % (37.0-80.0); Platelet Count (auto) 262 10^3/uL (140-450); Red Blood Cells 4.08 10^6/uL (4.5-5.90); Red Cell Distribution Width 17.2 % (11.8-14.3); White Blood Cell 9.7 10^3/uL (4.4-10.8)
[2023-10-28 03:47] LABS: Albumin 4.1 g/dL (3.2-4.8); Alkaline Phosphatase 97 U/L (46-116); Anion Gap 7 (5-15); Aspartate Aminotransferase 10 U/L (13-40); BUN/Creatinine Ratio 12.3 (10.0-20.0); Bilirubin, Total 0.6 mg/dL (0.2-1.0); Calcium 8.8 mg/dL (8.7-10.4); Carbon Dioxide 24 mmol/L (20-30); Chloride 102 mmol/L (98-107); Glucose 134 mg/dL (74-106); Sodium 133 mmol/L (136-145); Total Protein 7.9 g/dL (5.7-8.2)
[2023-10-28 03:53] LABS: Blood Urea Nitrogen 23 mg/dL (9-23)
[2023-10-28 03:54] LABS: Alanine Aminotransferase < 9 U/L (7-40)
[2023-10-28] MEDS: LEVOTHYROXINE SODIUM 25 MCG TAB PO SCH (06:28)
[2023-10-28 07:25] VITALS: PULSE 93; RESP 16; O2SAT 97
[2023-10-28] MEDS ORDERED: INDOMETHACIN 50 MG PO SCH (08:00)
[2023-10-28] MEDS: cefTRIAXone 1GM/50ML D5W 50 ML IV SCH (09:10)
[2023-10-28] MEDS: ALLOPURINOL 100 MG TAB PO SCH (10:00)
[2023-10-28] MEDS: ASPirin-EC 81 mg tab PO SCH (10:31)
[2023-10-28 10:41] LABS: Free T4 (Free Thyroxine) 1.03 ng/dL (0.89-1.76)
[2023-10-28 10:42] LABS: Free T3 2.81 pg/mL (2.3-4.2)
[2023-10-28 17:44] VITALS: BP 145/80; PULSE 78; RESP 22; TEMP 98.2; O2SAT 96
[2023-10-28 20:00] VITALS: PULSE 98; RESP 20; O2SAT 95
[2023-10-28] MEDS: ENOXAPARIN SOD 40 MG/0.4 ML SYRINGE SC STA (20:19)
[2023-10-28 21:00] VITALS: BP 143/77; PULSE 102; RESP 18; TEMP 100; O2SAT 94
[2023-10-29] VITALS (8 sets, daily range): BP systolic 110–133; BP diastolic 62–80; PULSE 89–112; RESP 16–20; TEMP 97.8–98.7; O2SAT 92–100
[2023-10-29 04:51] LABS: Basophils # (auto) 0.1 10 ^3/uL (0-0.2); Basophils % (auto) 1.2 % (0.0-2.0); Eosinophils # (auto) 0.1 10 ^3/uL (0-0.8); Eosinophils % (auto) 1.2 % (0.0-7.0); Hematocrit 36.1 % (41.0-53.0); Mean Corpuscular Hemoglobin 28.9 pg (28.0-32.0); Mean Corpuscular Hgb Conc. 33.1 g/dL (32.0-36.0); Mean Corpuscular Volume 87.5 fL (80.0-100.0); Monocytes # (auto) 0.7 10 ^3/uL (0-1.3); Monocytes % (auto) 8.3 % (0.0-12.0); Neutrophils # (auto) 6.7 10 ^3/uL (1.6-8.6); Neutrophils % (auto) 77.3 % (37.0-80.0); Platelet Count (auto) 253 10^3/uL (140-450); Red Blood Cells 4.13 10^6/uL (4.5-5.90); Red Cell Distribution Width 16.9 % (11.8-14.3); White Blood Cell 8.7 10^3/uL (4.4-10.8)
[2023-10-29 05:02] LABS: Creatinine, Urine 68.52 mg/dL (30.0-125.0)
[2023-10-29 05:07] LABS: Alanine Aminotransferase 25 U/L (7-40); Albumin 3.8 g/dL (3.2-4.8); Alkaline Phosphatase 137 U/L (46-116); Anion Gap 7 (5-15); Aspartate Aminotransferase 36 U/L (13-40); BUN/Creatinine Ratio 15.8 (10.0-20.0); Blood Urea Nitrogen 16 mg/dL (9-23); Calcium 8.9 mg/dL (8.7-10.4); Carbon Dioxide 23 mmol/L (20-30); Chloride 104 mmol/L (98-107); Glucose 112 mg/dL (74-106); Potassium 4.4 mmol/L (3.5-5.1); Sodium 134 mmol/L (136-145)
[2023-10-29 05:08] LABS: Bilirubin, Total 0.6 mg/dL (0.2-1.0); Total Protein 7.7 g/dL (5.7-8.2)
[2023-10-29] MEDS: LEVOTHYROXINE SODIUM 100 MCG TAB PO SCH (06:26)
[2023-10-29] MEDS: ENOXAPARIN SOD 40 MG/0.4 ML SYRINGE SC SCH (09:16)
[2023-10-29] MEDS ORDERED: LACTULOSE 20Gm/30ML SOLN PO PRN (09:30)
[2023-10-29] MEDS: LACTULOSE 20Gm/30ML SOLN PO STA (13:31)
[2023-10-29] MEDS: METOCLOPRAMIDE HCL 5MG/ml INJ 2ml VIAL IV STA (13:51)
[2023-10-29 14:58] LABS: Amphetamine Screen, Urine Neg (NEGATIVE); Barbiturate Scree,Urine Neg (NEGATIVE); Benzodiazephine Screen, Urine Neg (NEGATIVE); Cocaine Screen, Urine Pos (NEGATIVE)
[2023-10-29 14:59] LABS: Cannabinoid Screen, Urine Neg (NEGATIVE); Opiate Scree,Urine Pos (NEGATIVE); Phencyclidine Screen, Urine Neg (NEGATIVE)
[2023-10-29] MEDS: POLYETHYLENE GLYCOL 17 GM PWDR PO STA (20:17)
[2023-10-29] MEDS: ACETAMINOPHEN 325 MG TAB PO PRN (20:17)
[2023-10-29] MEDS: BISACODYL 5 MG EC TAB PO ONE (22:22)
[2023-10-29] MEDS: FLEET ENEMA(ADULT) 135 ML PR ONE (23:49)
[2023-10-30] VITALS (8 sets, daily range): BP systolic 116–136; BP diastolic 66–88; PULSE 77–103; RESP 14–20; TEMP 98–98.8; O2SAT 94–100
[2023-10-30 08:01] LABS: Basophils # (auto) 0.1 10 ^3/uL (0-0.2); Basophils % (auto) 0.6 % (0.0-2.0); Eosinophils # (auto) 0.1 10 ^3/uL (0-0.8); Eosinophils % (auto) 1.6 % (0.0-7.0); Hematocrit 34.3 % (41.0-53.0); Hemoglobin 11.2 g/dL (13.5-17.5); Lymphocytes # (auto) 0.8 10 ^3/uL (0.4-5.4); Lymphocytes % (auto) 8.9 % (10.0-50.0); Mean Corpuscular Hemoglobin 28.6 pg (28.0-32.0); Mean Corpuscular Hgb Conc. 32.5 g/dL (32.0-36.0); Mean Corpuscular Volume 87.8 fL (80.0-100.0); Monocytes # (auto) 0.8 10 ^3/uL (0-1.3); Monocytes % (auto) 8.4 % (0.0-12.0); Neutrophils # (auto) 7.3 10 ^3/uL (1.6-8.6); Neutrophils % (auto) 80.5 % (37.0-80.0); Platelet Count (auto) 283 10^3/uL (140-450); Red Blood Cells 3.91 10^6/uL (4.5-5.90); Red Cell Distribution Width 16.9 % (11.8-14.3)
[2023-10-30 08:17] LABS: Anion Gap 7 (5-15); Calcium 9.2 mg/dL (8.7-10.4); Carbon Dioxide 24 mmol/L (20-30); Chloride 101 mmol/L (98-107); Potassium 3.7 mmol/L (3.5-5.1); Sodium 132 mmol/L (136-145)
[2023-10-30 08:23] LABS: BUN/Creatinine Ratio 12.8 (10.0-20.0); Blood Urea Nitrogen 12 mg/dL (9-23); Glucose 116 mg/dL (74-106)
[2023-10-30] MEDS: LACTULOSE 20Gm/30ML SOLN PO PRN (09:50)
[2023-10-30] MEDS ORDERED: INDOMETHACIN 50 MG PO PRN (10:00)
[2023-10-30] MEDS: SODIUM CHLORIDE 0.9% 1,000 ML IV SCH (13:01)
[2023-10-31] VITALS (8 sets, daily range): BP systolic 120–148; BP diastolic 64–87; PULSE 94–104; RESP 17–20; TEMP 97.9–98.7; O2SAT 93–100
[2023-10-31] MEDS: LEVOTHYROXINE SODIUM 25 MCG TAB PO SCH (06:01)
[2023-10-31 08:23] LABS: Basophils # (auto) 0.1 10 ^3/uL (0-0.2); Basophils % (auto) 1.1 % (0.0-2.0); Eosinophils # (auto) 0.2 10 ^3/uL (0-0.8); Eosinophils % (auto) 2.8 % (0.0-7.0); Hematocrit 32.3 % (41.0-53.0); Hemoglobin 10.4 g/dL (13.5-17.5); Lymphocytes % (auto) 12.5 % (10.0-50.0); Mean Corpuscular Hemoglobin 28.7 pg (28.0-32.0); Mean Corpuscular Hgb Conc. 32.2 g/dL (32.0-36.0); Mean Corpuscular Volume 88.9 fL (80.0-100.0); Monocytes # (auto) 0.6 10 ^3/uL (0-1.3); Neutrophils # (auto) 6.1 10 ^3/uL (1.6-8.6); Neutrophils % (auto) 75.6 % (37.0-80.0); Platelet Count (auto) 291 10^3/uL (140-450); Red Blood Cells 3.63 10^6/uL (4.5-5.90); Red Cell Distribution Width 16.7 % (11.8-14.3); White Blood Cell 8.1 10^3/uL (4.4-10.8)
[2023-10-31 08:36] LABS: Chloride 104 mmol/L (98-107); Potassium 3.5 mmol/L (3.5-5.1); Sodium 134 mmol/L (136-145)
[2023-10-31 08:37] LABS: Anion Gap 7 (5-15); Carbon Dioxide 23 mmol/L (20-30)
[2023-10-31 08:42] LABS: BUN/Creatinine Ratio 12.5 (10.0-20.0); Blood Urea Nitrogen 10 mg/dL (9-23); Glucose 101 mg/dL (74-106)
[2023-10-31] MEDS: INDOMETHACIN 25 MG CAP PO PRN (16:42)
[2023-10-31] MEDS ORDERED: INDOMETHACIN 25 MG CAP PO SCH (18:00)
[2023-10-31] MEDS ORDERED: CEFP200T15 PO (18:09)
== END 2023-10-31 21:33 | disposition home or self-care (01) | DRG 917 ==
LOC: EDUNIT# 13:26 → ER 13:26 → EDBD 13:26 → OVERFLOW 18:36 → CENTRAL 10-28 17:37
PROVIDERS: ADMIT Internal Medicine Pulmonary Disease; ATTEND Internal Medicine Pulmonary Disease
DX: T40.5X1A Poisoning by cocaine, accidental (unintentional), initial encounter (principal); N17.0 Acute kidney failure with tubular necrosis; E87.1 Hypo-osmolality and hyponatremia; Z68.43 Body mass index [BMI] 50.0-59.9, adult; N10 Acute pyelonephritis; T40.601A Poisoning by unspecified narcotics, accidental (unintentional), initial encounter; K59.03 Drug induced constipation; M10.9 Gout, unspecified; E03.9 Hypothyroidism, unspecified; N18.2 Chronic kidney disease, stage 2 (mild); F11.10 Opioid abuse, uncomplicated; F14.10 Cocaine abuse, uncomplicated; E66.01 Morbid (severe) obesity due to excess calories; G47.30 Sleep apnea, unspecified; E78.5 Hyperlipidemia, unspecified; Y92.89 Other specified places as the place of occurrence of the external cause; Z79.899 Other long term (current) drug therapy
CPT/HCPCS: 36415; 71045; 74018; 74176; 76775; 80048; 80053; 80061; 80307; 81001; 82570; 83036; 83605; 83690; 84300; 84439; 84443; 84481; 84484; 85025; 87040; 87081; 87086; 93005; 93971; 96365; 96375; G0378; J2405

== ENCOUNTER 2024-04-23 11:49 | Emergency (ER) | payer MEDICARE, MEDICAID ==
[~2024-04-23] VITALS: Ht 172.7 cm; Wt 127.0 kg
[~2024-04-23 11:49] MED LIST changes: -BACDST PO; +CEFP200T15 PO
[2024-04-23] MEDS ORDERED: BACDST PO (12:44)
[2024-04-23 12:45] VITALS: BP 123/84; PULSE 112; RESP 16; TEMP 97.6; O2SAT 95
--- NOTE | 2024-04-23 12:49 | ED.PDOC ---
History of Present Illness(SKN HPI Comments A 58-YEAR-OLD MALE WITH PMHX GOUT PRESENTS WITH A CHIEF COMPLAINT OF PILONIDAL CYST TO BUTTOCK. PATIENT REPORTS THAT IT HAS BEEN X 4 DAYS SINCE THE ONSET OF HIS CYST. PATIENT HAS ROUGHLY 2CM WIDE CYST TO THE TOP OF HIS BUTTOCK. PATIENT MENTIONS THAT HE HAS PAIN MEDICATION FROM HIS GOUT. PATIENT DOES NOT HAVE ABSCESS AT THIS TIME. NO OTHER SYMPTOMS OR MODIFYING FACTORS PRESENT AT THIS TIME. Chief Complaint: Abscess Time Seen by MD: 12:40 Primary Care Provider: GALILEO History of Present Illness: Nurses Notes, Medications, Allergies Allergies: Coded Allergies: NO KNOWN ALLERGIES (Unverified , 08/15/21) Home Meds Active Scripts Sulfamethoxazole W/Trimethopri (Bactrim Ds Tablet) 1 Tab Tb, 1 TAB PO BID for 14 Days, #28 TAB Prov:JORJE PRESCOTT 04/23/24 Cefpodoxime Proxetil (Cefpodoxime Proxetil) 200 Mg Tab, 1 TAB PO BID for 5 Days, #10 TAB Prov:MIKAYLA DIAZ RESIDENT 10/31/23 Atorvastatin Calcium (ATORVASTATIN CALCIUM) 20 Mg Tab, 40 MG PO HS for 90 Days, #180 TAB Prov:YESENIA CARDENAS RESIDENT 09/04/23 Levothyroxine Sodium (Levothyroxine Sodium) 25 Mcg Tab, 75 MCG PO QAM@0600 for 90 Days, #90 TAB Prov:YESENIA CARDENAS RESIDENT 09/04/23 Aspirin (Aspirin Low Dose) 81 Mg Tab, 81 MG PO DAILY for 90 Days, #90 TAB Prov:YESENIA CARDENAS RESIDENT 09/04/23 Allopurinol (ZYLOPRIM TABLET) 300 Mg Tb, 300 MG PO DAILY for 30 Days, #30 TAB 3 Refills Prov:SHANNAN MENDEZ MD 08/21/21 Reported Medications Indomethacin (Indomethacin) 50 Mg Cap, 50 MG PO BIDWM for gout for 30 Days, #60 MG 09/01/23 Information Source: Patient Mode of Arrival: Ambulatory Severity: Moderate Timing: Days Duration: Since onset Prehospital treatment: None Location: Buttock Mechanism: Spontaneous Onset Occurence: Indoors Object: None Condition of Object: None Retained Foreign Body: No Wound Type: None Immunization Status of Animal: NA Tetanus: Unknown History of: None Associated Signs and Symptoms: Redness, Pain Past Medical History PAST MEDICAL HISTORY: Arthritis, Gout, [place] Surgical History: Denies all surgeries Family History Family History: Reviewed,noncontributory to illness Social History Smoker: Non-Smoker Alcohol: Denies ETOH Use Drugs: Denies Drug Use Lives In: Home Constitutional: denies: chills, diaphoresis, fatigue, fever, malaise, sweats, weakness, others EENTM: denies: blurred vision, double vision, ear bleeding, ear discharge, ear drainage, ear pain, ear ringing, eye pain, eye redness, hearing loss, mouth pain, mouth swelling, nasal discharge, nose bleeding, nose congestion, nose pain, photophobia, tearing, throat pain, throat swelling, voice changes, others Respiratory: denies: cough, hemoptysis, orthopnea, SOB at rest, shortness of breath, SOB with excertion, stridor, wheezing, others Cardiovascular: denies: chest pain, dizzy spells, diaphoresis, Dyspnea on exertion, edema, irregular heart beat, left arm pain, lightheadedness, palpitations, PND, syncope, others Gastrointestinal: denies: abdomen distended, abdominal pain, blood streaked bowels, constipated, diarrhea, dysphagia, difficulty swallowing, hematemesis, melena, nausea, poor appetite, poor fluid intake, rectal bleeding, rectal pain, vomiting, others Genitourinary: denies: burning, dysuria, flank pain, frequency, hematuria, incontinence, penile discharge, penile sore, pain, testicle pain, testicle swelling, urgency, others Neurological: denies: dizziness, fainting, headache, left sided numbness, left sided weakness, numbness, paresthesia, pre-existing deficit, right sided numbness, right sided weakness, seizure, speech problems, tingling, tremors, weakness, others Musculoskeletal: denies: back pain, gout, joint pain, joint swelling, muscle pain, muscle stiffness, neck pain, others Integumetry: reports: lumps (PILONIDAL CYST ON TAILBONE REGION ); denies: bruises, change in color, change in hair/nails, dryness, laceration, lesions, rash, wounds, others Allergic/Immunocompromised: denies: Difficulty Healing, Frequent Infections, Hives, Itching, others Hematologic/Lymphatic: denies: anemia, blood clots, easy bleeding, easy bruising, swollen glands, others Endocrine: denies: excessive hunger, excessive sweating, excessive thirst, excessive urination, flushing, intolerance to cold, intolerance to heat, unexplained weight gain, unexplained weight loss, others Psychiatric: denies: anxiety, bipolar disorder, depression, hopeless, panic disorder, schizophrenia, sleepless, suicidal, others All Other Systems: Reviewed and Negative Physical Exam General Appearance: No Apparent Distress, Obese HEENT: Normal ENT Inspection, PERRL/EOMI, Pharynx Normal, TMs Normal Neck: Full Range of Motion, Non-Tender, Normal, Normal Inspection Respiratory: Chest Non-Tender, Lungs Clear, No Accessory Muscle Use, No Respiratory Distress, Normal Breath Sounds Cardiovascular: No Edema, No JVD, No Murmur, No Gallop, Normal Peripheral Pulses, Regular Rate/Rhythm Breast Exam: Deferred Gastrointestinal: No Organomegaly, Non Tender, No Pulsatile Mass, Normal Bowel Sounds, Soft Genitalia: Deferred Pelvic: Deferred Rectal: Deferred Extremities: No calf tenderness, Normal capillary refill, Normal range of motion, No pedal edema, Tender (WITH A BUMP ON TAILBONE REGION. ) Musculoskeletal : Apperance: Normal Neurologic: Alert, government relations analyst II-XII nml as Tested, No Motor Deficits, Normal Affect, Normal Mood, No Sensory Deficits Cerebellar Function: Normal Reflexes: Normal Skin: Dry, Warm, Other ([id number] BUMP ON TAILBONE REGION WITH LOCALIZED REDNESS AND TENDERNESS, NO OPEN WOUND SEEN. +PILONIDAL CYST. ) Peripheral Pulses: 2+ carotid (R), 2+ carotid (L) Lymphatic: No Adenopathy Was a procedure done? Was a procedure done?: No Differential Diagnosis (INTG) Differential Diagnosis: Abscess, Cellulitis, Other (PILONIDAL CYST ) X-Ray, Labs, Meds, VS Vital Signs Date Time Temp Pulse Resp B/P (MAP) Pulse Ox O2 Delivery O2 Flow Rate FiO2 04/23/24 12:45 112 16 95 Room Air 04/23/24 12:45 97.6 112 16 123/84 (97) 95 97.6 04/23/24 12:27 97.6 112 16 123/84 (97) 95 X-Ray, Labs, Meds, VS Comment EXTERNAL MEDICAL RECORDS REVIEWED: [NONE] INDEPENDENT HISTORIANS: [NONE] SOCIAL DETERMINANTS OF HEALTH: [NONE] LABS ORDERED: NONE REVIEWED AND INTERPRETED RESULTS: NONE IMAGING ORDERED: NONE TREATMENTS ORDERED: NO PROCEDURES PERFORMED: NONE CRITICAL CARE TIME: NONE I HAVE DISCUSSED THE PATIENT WITH THE ATTENDING PHYSICIAN DR. ARNOLD AND HE AGREES WITH THE PATIENT'S PLAN OF CARE AND DISPOSITION. BASED ON HISTORY OF PRESENT ILLNESS, AND PHYSICAL EXAM, PATIENT WILL BE DISCHARGED HOME. DISCUSSED PLAN FOR DISCHARGE HOME WITH RX []. MEDICATION WARNINGS GIVEN. SHARED DECISION MAKING: DISCUSSED WITH PATIENT THAT THEIR WORKUP WAS NORMAL. PATIENT INSTRUCTED TO FOLLOW UP WITH PRIMARY CARE PROVIDER IN 1-2 DAYS FOR RE- EVALUATION OF SYMPTOMS. PATIENT VERBALIZES UNDERSTANDING TO RETURN TO ED FOR NEW OR WORSENING SYMPTOMS OR IF FOLLOW UP WITH PCP CANNOT BE OBTAINED. PATIENT FEELS COMFORTABLE GOING HOME AT THIS TIME. ALL QUESTIONS ADDRESSED AT TIME OF DISCHARGE. Images Reviewed?: Images reviewed and evaluated by me Time of 1ST Reevaluation: 13:18 Reevaluation 1ST: Improved Patient Education/Counseling: Diagnosis, Treatment, Need For Follow Up Family Education/Counseling: Diagnosis, Treatment, Need For Follow Up Medical Screening: No EMC Exist At This Time Departure 1 Departure Time of Disposition: 13:20 Impression: Primary Impression: Pilonidal cyst of tyshawn cleft Disposition: 01 HOME / SELF CARE / HOMELESS Condition: Stable Additional Instructions: FOLLOW UP WITH YOUR PCP IN 1-2 DAYS. TAKE ALL MEDICATIONS PRESCRIBED. RETURN TO THE ER IF YOUR SYMPTOMS WORSEN. e-Prescriptions Sulfamethoxazole W/Trimethopri (Bactrim Ds Tablet) 1 Tab Tb 1 TAB PO BID for 14 Days, #28 TAB Prov: JORJE PRESCOTT 04/23/24 Discharged With: Self Critical Care Note Critical Care Time?: No Stability Stability form required: No Heart Score Heart Score: Heart Score Response (Comments) Value History N/A 0 EKG N/A 0 Age N/A 0 Risk Factors N/A 0 Troponin N/A 0 Total 0 I personally scribed for JORJE PRESCOTT ([email or web address]) on 04/23/24 at 12:49. Electronically submitted by Luis Carlos Chase ([email or web address]). I personally scribed for JORJE PRESCOTT ([email or web address]) on 04/23/24 at 12:53. Electronically submitted by Luis Carlos Chase ([email or web address]). JORJE PRESCOTT Apr 23, 2024 12:49
== END 2024-04-23 13:04 | disposition home or self-care (01) ==
LOC: ER 12:08
DX: L05.91 Pilonidal cyst without abscess (principal); M10.9 Gout, unspecified; M19.90 Unspecified osteoarthritis, unspecified site; I25.2 Old myocardial infarction; Z79.82 Long term (current) use of aspirin; Z79.890 Hormone replacement therapy; Z79.899 Other long term (current) drug therapy

== ENCOUNTER 2024-05-27 17:02 | Emergency (ER) | payer MEDICARE, MEDICAID ==
[~2024-05-27] VITALS: Ht 172.7 cm; Wt 132.0 kg
[~2024-05-27 17:02] MED LIST changes: +BACDST PO
[2024-05-27 18:22] VITALS: BP 137/86; PULSE 105; RESP 17; TEMP 97.7; O2SAT 96
--- NOTE | 2024-05-27 18:57 | DVH ---
CLINICAL INDICATION: right 3rd finger pain TECHNIQUE: 4 radiographic views of the right hand were obtained. Comparison: None FINDINGS/IMPRESSION: Erosive arthritic changes are noted metacarpal phalangeal joint of the thumb proximal intercourse inn er phalangeal joint of the index finger proximal interphalangeal joint of the 3rd finger proximal int erphalangeal joint of the 4th finger and metacarpal phalangeal joint of the 5th finger. There is subl uxation of the metacarpal phalangeal joint of the thumb right 3rd digit and subluxation of the right 4th digit at the proximal interphalangeal joint and the metacarpophalangeal joint of the right 5th di git. Findings suggest an erosive arthritis. Correlate with patient's clinical history
[2024-05-27] MEDS: methylPREDNISolone SOD SUCC 125 MG/2 ML VL IM ONE (19:03)
[2024-05-27] MEDS: KETOROLAC TROMETH 60MG/2ML VIAL IM ONE (19:03)
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
[2024-05-27 19:08] LABS: Basophils # (auto) 0 10 ^3/uL (0-0.2); Basophils % (auto) 0.2 % (0.0-2.0); Eosinophils # (auto) 0.3 10 ^3/uL (0-0.8); Eosinophils % (auto) 3.8 % (0.0-7.0); Hematocrit 41.4 % (41.0-53.0); Hemoglobin 13.7 g/dL (13.5-17.5); Lymphocytes # (auto) 1.6 10 ^3/uL (0.4-5.4); Lymphocytes % (auto) 20.1 % (10.0-50.0); Mean Corpuscular Hemoglobin 28.4 pg (28.0-32.0); Mean Corpuscular Hgb Conc. 33.1 g/dL (32.0-36.0); Mean Corpuscular Volume 85.9 fL (80.0-100.0); Monocytes # (auto) 0.4 10 ^3/uL (0-1.3); Monocytes % (auto) 5.4 % (0.0-12.0); Neutrophils # (auto) 5.7 10 ^3/uL (1.6-8.6); Neutrophils % (auto) 70.5 % (37.0-80.0); Nucleated Red Blood Cells % 0.1 %; Platelet Count (auto) 227 10^3/uL (140-450); Red Blood Cells 4.82 10^6/uL (4.5-5.90); Red Cell Distribution Width 17.8 % (11.8-14.3); White Blood Cell 8.2 10^3/uL (4.4-10.8)
[2024-05-27] MEDS ORDERED: METH4PAK PO (19:14)
[2024-05-27] MEDS ORDERED: INDO50CA82 PO (19:14)
== END 2024-05-27 19:42 | disposition home or self-care (01) ==
LOC: ER 17:02
DX: M10.9 Gout, unspecified (principal); M19.041 Primary osteoarthritis, right hand; Z79.899 Other long term (current) drug therapy; Z79.84 Long term (current) use of oral hypoglycemic drugs; Z79.82 Long term (current) use of aspirin
CPT/HCPCS: 36415; 73130; 84550; 85025; 96372; 99284; J1885; J2919

== ENCOUNTER 2024-08-19 13:32 | Emergency (ER) | payer MEDICARE, MEDICAID ==
[~2024-08-19] VITALS: Ht 172.7 cm; Wt 127.3 kg
[~2024-08-19 13:32] MED LIST changes: +METH4PAK PO
[2024-08-19 14:56] LABS: Basophils # (auto) 0 10 ^3/uL (0-0.2); Basophils % (auto) 0.9 % (0.0-2.0); Eosinophils # (auto) 0.3 10 ^3/uL (0-0.8); Eosinophils % (auto) 5.2 % (0.0-7.0); Hematocrit 42.9 % (41.0-53.0); Hemoglobin 14.3 g/dL (13.5-17.5); Lymphocytes # (auto) 1.4 10 ^3/uL (0.4-5.4); Lymphocytes % (auto) 27.9 % (10.0-50.0); Mean Corpuscular Hemoglobin 28.4 pg (28.0-32.0); Mean Corpuscular Hgb Conc. 33.3 g/dL (32.0-36.0); Mean Corpuscular Volume 85.5 fL (80.0-100.0); Monocytes # (auto) 0.3 10 ^3/uL (0-1.3); Monocytes % (auto) 5.2 % (0.0-12.0); Neutrophils # (auto) 3.1 10 ^3/uL (1.6-8.6); Neutrophils % (auto) 60.8 % (37.0-80.0); Nucleated Red Blood Cells % 0.1 %; Platelet Count (auto) 244 10^3/uL (140-450); Red Blood Cells 5.02 10^6/uL (4.5-5.90); Red Cell Distribution Width 16.3 % (11.8-14.3); White Blood Cell 5.1 10^3/uL (4.4-10.8)
[2024-08-19 15:09] LABS: Chloride 105 mmol/L (98-107); Potassium 3.8 mmol/L (3.5-5.1); Sodium 143 mmol/L (136-145)
[2024-08-19 15:10] LABS: Anion Gap 11 (5-15); Calcium 9.9 mg/dL (8.7-10.4); Carbon Dioxide 27 mmol/L (20-31)
[2024-08-19 15:15] LABS: BUN/Creatinine Ratio 15.5 (10.0-20.0); Blood Urea Nitrogen 16 mg/dL (9-23)
[2024-08-19 15:17] LABS: Glucose 135 mg/dL (74-106)
[2024-08-19 15:28] VITALS: BP 131/81; PULSE 86; RESP 18; TEMP 97.6; O2SAT 97
[2024-08-19 15:31] LABS: Uric Acid 10.9 mg/dL (3.7-9.2)
--- NOTE | 2024-08-19 15:33 | ED.PDOC ---
Musculoskeletal HPI Comments 58 year old male with a past medical history of arthritis, Gout, [place] presents to the emergency department with a chief compliant of LT hand pain onset 2 weeks. Patient states he has been experiencing Gout flare up of LT hand with swelling and pain. For the past 2 days, patient noticed an abscess on RT buttock, pain worsens with sitting. No other symptoms or modifying factors present at this time. Denies fevers chills night sweats nausea vomiting Numbness/tingling down the arm Denies changes, shortness of breath Denies headache dizziness Denies rectal bleeding Denies dysuria hematuria frequency Chief Complaint: Upper Extremity Time Seen by MD: 14:30 Primary Care Provider: GALILEO Reviewed Notes: Nurses Notes, Medications, Allergies Allergies: Coded Allergies: NO KNOWN ALLERGIES (Unverified , 08/15/21) Home Meds Active Scripts Methylprednisolone (Medrol Dosepak) 4 Mg Sd, 4 MG PO UD, #21 TAB UAD Prov:SHANNON MOORE HANDLE AND VENT MACHINE OPERATOR 08/19/24 Sulfamethoxazole W/Trimethopri (Bactrim Ds Tablet) 1 Tab Tb, 1 TAB PO BID for 7 Days, #14 TAB 0 Refills Prov:SHANNON MOORE HANDLE AND VENT MACHINE OPERATOR 08/19/24 Indomethacin (Indomethacin) 50 Mg Cap, 1 CAP PO TID PRN, #30 CAP 0 Refills Prov:YAYA SARGENT 05/27/24 Sulfamethoxazole W/Trimethopri (Bactrim Ds Tablet) 1 Tab Tb, 1 TAB PO BID for 14 Days, #28 TAB Prov:JORJE PRESCOTT 04/23/24 Cefpodoxime Proxetil (Cefpodoxime Proxetil) 200 Mg Tab, 1 TAB PO BID for 5 Days, #10 TAB Prov:MIKAYLA DIAZ RESIDENT 10/31/23 Atorvastatin Calcium (ATORVASTATIN CALCIUM) 20 Mg Tab, 40 MG PO HS for 90 Days, #180 TAB Prov:YESENIA CARDENAS RESIDENT 09/04/23 Levothyroxine Sodium (Levothyroxine Sodium) 25 Mcg Tab, 75 MCG PO QAM@0600 for 90 Days, #90 TAB Prov:YESENIA CARDENAS RESIDENT 09/04/23 Aspirin (Aspirin Low Dose) 81 Mg Tab, 81 MG PO DAILY for 90 Days, #90 TAB Prov:YESENIA CARDENAS RESIDENT 09/04/23 Allopurinol (ZYLOPRIM TABLET) 300 Mg Tb, 300 MG PO DAILY for 30 Days, #30 TAB 3 Refills Prov:SHANNAN MENDEZ MD 08/21/21 Reported Medications Indomethacin (Indomethacin) 50 Mg Cap, 50 MG PO BIDWM for gout for 30 Days, #60 MG 09/01/23 Information Source: Patient Mode of Arrival: Wheelchair Location: Right Past Medical History PAST MEDICAL HISTORY: Arthritis, Gout, [place] Surgical History: Denies all surgeries Family History Family History: Unknown Social History Smoker: Non-Smoker Alcohol: Denies ETOH Use Drugs: Denies Drug Use Lives In: Home All Other Systems: Reviewed and Negative (as per HPI) Physical Exam General Appearance: No Apparent Distress, Normal HEENT: Normal ENT Inspection, Pharynx Normal, TMs Normal Neck: Full Range of Motion, Non-Tender, Normal, Normal Inspection Respiratory: Chest Non-Tender, Lungs Clear, No Accessory Muscle Use, No Respiratory Distress, Normal Breath Sounds Cardiovascular: No Edema, No JVD, No Murmur, No Gallop, Normal Peripheral P ulses, Regular Rate/Rhythm Breast Exam: Deferred Gastrointestinal: No Organomegaly, Non Tender, No Pulsatile Mass, Normal Bowel Sounds, Soft Genitalia: Deferred Pelvic: Deferred Rectal: Deferred Extremities: No calf tenderness, Normal capillary refill, Normal inspection, Normal range of motion, Non-tender, No pedal edema Musculoskeletal : Apperance: Normal Neurologic: Alert, tar man II-XII nml as Tested, No Motor Deficits, Normal Affect, Normal Mood, No Sensory Deficits Cerebellar Function: Normal Reflexes: Normal Skin: Dry, Other (2 x 2 cm round abscess on RT upper intragluteal crease with no surrounding erythmea, fluctant and TTP, no crepitus, no signs of streaking ) Lymphatic: No Adenopathy Was a procedure done? Was a procedure done?: Yes Incision and Drainage Incision and Drainage: Abscess Anesthetic: Lidocaine with Epi Preparation: Betadine, Saline, Wound high pressure cleaner Incision and Wound: Pus, Seroma Informed consent obtained: Yes Risks/benefits/alt described: Yes X-Ray, Labs, Meds, VS Vital Signs Date Time Temp Pulse Resp B/P (MAP) Pulse Ox O2 Delivery O2 Flow Rate FiO2 08/19/24 15:28 97.6 86 18 131/81 (98) 97 97.6 08/19/24 15:28 86 18 97 Room Air 08/19/24 13:49 97.6 86 18 131/81 (98) 97 97.6 Lab Test 08/19/24 14:37 Range/Units White Blood Count 5.1 4.4-10.8 10^3/uL Red Blood Count 5.02 4.5-5.90 10^6/uL Hemoglobin 14.3 13.5-17.5 g/dL Hematocrit 42.9 41.0-53.0 % Mean Corpuscular Volume 85.5 80.0-100.0 fL Mean Corpuscular Hemoglobin 28.4 28.0-32.0 pg Mean Corpuscular Hemoglobin Concent 33.3 32.0-36.0 g/dL Red Cell Distribution Width 16.3 H 11.8-14.3 % Platelet Count 244 140-450 10^3/uL Mean Platelet Volume 6.9 6.9-10.8 fL Neutrophils (%) (Auto) 60.8 37.0-80.0 % Lymphocytes (%) (Auto) 27.9 10.0-50.0 % Monocytes (%) (Auto) 5.2 0.0-12.0 % Eosinophils (%) (Auto) 5.2 0.0-7.0 % Basophils (%) (Auto) 0.9 0.0-2.0 % Neutrophils # (Auto) 3.1 1.6-8.6 10 ^3/uL Lymphocytes # (Auto) 1.4 0.4-5.4 10 ^3/uL Monocytes # (Auto) 0.3 0-1.3 10 ^3/uL Eosinophils # (Auto) 0.3 0-0.8 10 ^3/uL Basophils # (Auto) 0 0-0.2 10 ^3/uL Nucleated Red Blood Cells 0.1 % Sodium Level 143 136-145 mmol/L Potassium Level 3.8 3.5-5.1 mmol/L Chloride Level 105 98-107 mmol/L Carbon Dioxide Level 27 20-31 mmol/L Anion Gap 11 5-15 Blood Urea Nitrogen 16 9-23 mg/dL Creatinine 1.03 0.700-1.30 mg/dL Glomerular Filtration Rate Calc 85 >90 mL/min BUN/Creatinine Ratio 15.5 10.0-20.0 Serum Glucose 135 H 74-106 mg/dL Uric Acid 10.9 H 3.7-9.2 mg/dL Calcium Level 9.9 8.7-10.4 mg/dL X-Ray, Labs, Meds, VS Comment 58 year old male with a past medical history of arthritis, Gout, [place] presents to the emergency department with a chief compliant of LT hand pain onset 2 weeks. Patient arrives alert and oriented, ABC's intact, afebrile, vital signs stable, saturating well in room air Peripheral IV insertion+ labs were ordered. CBC was ordered to exclude anemia, blood loss, or infection. BMP was ordered to exclude electrolyte abnormalities, renal failure, dehydration, hyperglycemia Uric Acid was ordered. Labs in the ED showed (pertinent+ and then pertinent-) Patient was given: lidocaine/epinephrine 5 ml . Tolerated medications with no adverse reaction. Additional MDM Review of External, Non-ED records: External records reviewed. Discussion with independent historian (EMS, family) history obtained from the patient/parents (if applicable) at bedside Chronic conditions affecting care: Gout, arthritis, [place] Social determinants of health affecting care: None Consideration of admission (observation or admission): I considered escalation of care to admission for this patient, however given the reassuring workup, the patient is safe for outpatient management. Time of 1ST Reevaluation: 15:00 Reevaluation 1ST: Improved Patient Education/Counseling: Diagnosis, Treatment Family Education/Counseling: No Family Present Departure 1 Departure Time of Disposition: 15:47 Impression: Primary Impression: Gluteal abscess Disposition: HOME / SELF CARE / HOMELESS Condition: Stable e-Prescriptions Methylprednisolone (Medrol Dosepak) 4 Mg Sd 4 MG PO UD, #21 TAB UAD Prov: SHANNON MOORE NP 08/19/24 Sulfamethoxazole W/Trimethopri (Bactrim Ds Tablet) 1 Tab Tb 1 TAB PO BID for 7 Days, #14 TAB 0 Refills Prov: SHANNON MOORE NP 08/19/24 Discharged With: Self Critical Care Note Critical Care Time?: No Stability Stability form required: No Heart Score Heart Score: Heart Score Response (Comments) Value History N/A 0 EKG N/A 0 Age N/A 0 Risk Factors N/A 0 Troponin N/A 0 Total 0 I personally scribed for SHANNON MOORE NP ([email or web address]) on 08/19/24 at 15:44. Electronically submitted by Luana Epstein ([email or web address]). I personally scribed for SHANNON MOORE NP ([email or web address]) on 08/19/24 at 15:45. Electronically submitted by Luana Epstein ([email or web address]). I personally scribed for SHANNON MOORE NP ([email or web address]) on 08/19/24 at 15:55. Electronically submitted by Luana Epstein ([email or web address]). SHANNON MOORE NP Aug 19, 2024 15:33
[2024-08-19] MEDS: LIDOCAINE W/ EPINEPHRINE 1% 20ML VIAL ID ONE (15:34)
[2024-08-19] MEDS ORDERED: BACDST PO (15:48)
[2024-08-19] MEDS ORDERED: METH4PAK PO (15:51)
== END 2024-08-19 15:59 | disposition home or self-care (01) ==
LOC: ER 13:40
DX: L02.31 Cutaneous abscess of buttock (principal); M19.90 Unspecified osteoarthritis, unspecified site; I25.2 Old myocardial infarction; Z79.82 Long term (current) use of aspirin; Z79.899 Other long term (current) drug therapy
CPT/HCPCS: 10060; 36415; 80048; 84550; 85025

== ENCOUNTER 2024-09-15 19:42 | Emergency (ER) | payer MEDICARE, MEDICAID ==
[~2024-09-15] VITALS: Ht 172.7 cm; Wt 127.3 kg
[2024-09-15] MEDS ORDERED: AMOX875T4 PO (19:53)
[2024-09-15] MEDS ORDERED: ACET500T58 PO (19:53)
--- NOTE | 2024-09-15 19:53 | ED.PDOC ---
History of Present Illness(SKN HPI Comments 58 year old male presents to ER with complaints of abscess to right buttock x 2 days. Patients states he developed an 8/10 painful "abscess" to right buttock 2 days ago with associated "green drainage" from the abscess x 1 day. Denies use of medications for current symptoms and presents to ER in no distress. Denies fever, body aches, chills, changes in bm or any further symptoms/complaints Time Seen by MD: 19:45 Primary Care Provider: GALILEO History of Present Illness: Nurses Notes, Medications, Allergies Allergies: Coded Allergies: NO KNOWN ALLERGIES (Unverified , 08/15/21) Home Meds Active Scripts Acetaminophen (Acetaminophen) 500 Mg Tab, 500 MG PO Q4HPRN, #30 TAB 0 Refills Prov:YAYA SARGENT 09/15/24 Amoxicillin & Pot Clavulanate (Amoxicillin/Potassium Cla) 875 Mg Tab, 1 TAB PO BID for 7 Days, #14 TAB 0 Refills Prov:YAYA SARGENT 09/15/24 Methylprednisolone (Medrol Dosepak) 4 Mg Sd, 4 MG PO UD, #21 TAB UAD Prov:SHANNON MOORE SWEET POTATO DISINTEGRATOR 08/19/24 Sulfamethoxazole W/Trimethopri (Bactrim Ds Tablet) 1 Tab Tb, 1 TAB PO BID for 7 Days, #14 TAB 0 Refills Prov:SHANNON MOORE SWEET POTATO DISINTEGRATOR 08/19/24 Indomethacin (Indomethacin) 50 Mg Cap, 1 CAP PO TID PRN, #30 CAP 0 Refills Prov:YAYA SARGENT 05/27/24 Sulfamethoxazole W/Trimethopri (Bactrim Ds Tablet) 1 Tab Tb, 1 TAB PO BID for 14 Days, #28 TAB Prov:JORJE PRESCOTT PA 04/23/24 Cefpodoxime Proxetil (Cefpodoxime Proxetil) 200 Mg Tab, 1 TAB PO BID for 5 Days, #10 TAB Prov:MIKAYLA DIAZ RESIDENT 10/31/23 Atorvastatin Calcium (ATORVASTATIN CALCIUM) 20 Mg Tab, 40 MG PO HS for 90 Days, #180 TAB Prov:YESENIA CARDENAS RESIDENT 09/04/23 Levothyroxine Sodium (Levothyroxine Sodium) 25 Mcg Tab, 75 MCG PO QAM@0600 for 90 Days, #90 TAB Prov:YESENIA CARDENAS RESIDENT 09/04/23 Aspirin (Aspirin Low Dose) 81 Mg Tab, 81 MG PO DAILY for 90 Days, #90 TAB Prov:YESENIA CARDENAS RESIDENT 09/04/23 Allopurinol (ZYLOPRIM TABLET) 300 Mg Tb, 300 MG PO DAILY for 30 Days, #30 TAB 3 Refills Prov:SHANNAN MENDEZ MD 08/21/21 Reported Medications Indomethacin (Indomethacin) 50 Mg Cap, 50 MG PO BIDWM for gout for 30 Days, #60 MG 09/01/23 Information Source: Patient Past Medical History PAST MEDICAL HISTORY: Arthritis, Gout, [place] Surgical History: Denies all surgeries Family History Family History: Unknown Social History Smoker: Non-Smoker Alcohol: Denies ETOH Use Drugs: Denies Drug Use Lives In: Home Constitutional: denies: chills, diaphoresis, fatigue, fever, malaise, sweats, weakness, others EENTM: denies: blurred vision, double vision, ear bleeding, ear discharge, ear drainage, ear pain, ear ringing, eye pain, eye redness, hearing loss, mouth pain, mouth swelling, nasal discharge, nose bleeding, nose congestion, nose pain, photophobia, tearing, throat pain, throat swelling, voice changes, others Respiratory: denies: cough, hemoptysis, orthopnea, SOB at rest, shortness of breath, SOB with excertion, stridor, wheezing, others Cardiovascular: denies: chest pain, dizzy spells, diaphoresis, Dyspnea on exertion, edema, irregular heart beat, left arm pain, lightheadedness, palpitations, PND, syncope, others Gastrointestinal: denies: abdomen distended, abdominal pain, blood streaked bowels, constipated, diarrhea, dysphagia, difficulty swallowing, hematemesis, melena, nausea, poor appetite, poor fluid intake, rectal bleeding, rectal pain, vomiting, others Genitourinary: denies: burning, dysuria, flank pain, frequency, hematuria, incontinence, penile discharge, penile sore, pain, testicle pain, testicle swelling, urgency, others Neurological: denies: dizziness, fainting, headache, left sided numbness, left sided weakness, numbness, paresthesia, pre-existing deficit, right sided numbness, right sided weakness, seizure, speech problems, tingling, tremors, weakness, others Musculoskeletal: denies: back pain, gout, joint pain, joint swelling, muscle pain, muscle stiffness, neck pain, others Integumetry: reports: others (As stated in HPI) Allergic/Immunocompromised: denies: Difficulty Healing, Frequent Infections, Hives, Itching, others Hematologic/Lymphatic: denies: anemia, blood clots, easy bleeding, easy bruising, swollen glands, others Endocrine: denies: excessive hunger, excessive sweating, excessive thirst, excessive urination, flushing, intolerance to cold, intolerance to heat, unexplained weight gain, unexplained weight loss, others Psychiatric: denies: anxiety, bipolar disorder, depression, hopeless, panic disorder, schizophrenia, sleepless, suicidal, others Physical Exam General Appearance: No Apparent Distress HEENT: PERRL/EOMI Neck: Full Range of Motion, Non-Tender, Normal Respiratory: Chest Non-Tender, Lungs Clear, No Accessory Muscle Use, No Respiratory Distress, Normal Breath Sounds Cardiovascular: No Edema, No Murmur, No Gallop, Regular Rate/Rhythm Breast Exam: Deferred Gastrointestinal: NOT DONE Genitalia: Deferred Pelvic: Deferred Rectal: Deferred Extremities: Normal capillary refill, Normal range of motion Neurologic: Alert, human resource adviser II-XII nml as Tested, No Motor Deficits, Normal Affect, Normal Mood, No Sensory Deficits Cerebellar Function: Normal Reflexes: Normal Skin: Dry, Warm, Other (Small papule <.5 cm in size noted to right buttock with mild surrounding erythema/minimal swelling. No fluctuance/drainage noted) Lymphatic: No Adenopathy Was a procedure done? Was a procedure done?: No Sedation Sedation?: No Differential Diagnosis (INTG) Differential Diagnosis: Abrasion Differential Diagnosis: Abscess Differential Diagnosis: Puncture Wound, Retained Foreign Body X-Ray, Labs, Meds, VS Rocephin 1 g IM ordered Wound care/cleaning discussed and advised Advised to follow up with PCP in 1-2 days Patient verbalized understanding and agreeable with current plan of care Advised to return to ER immediately if symptoms worsen Time of 1ST Reevaluation: 19:24 Reevaluation 1ST: N/A Patient Education/Counseling: Diagnosis, Treatment, Prognosis, Need For Follow Up Family Education/Counseling: No Family Present SEPSIS Sepsis Screen Physician Orders Ceftriaxone Sodium (Rocephin) (09/15/24 20:00) Departure 1 Departure Time of Disposition: 19:52 Impression: Primary Impression: Cellulitis of right buttock Disposition: HOME / SELF CARE / HOMELESS Condition: Stable e-Prescriptions Acetaminophen (Acetaminophen) 500 Mg Tab 500 MG PO Q4HPRN, #30 TAB 0 Refills Prov: YAYA SARGENT 09/15/24 Amoxicillin & Pot Clavulanate (Amoxicillin/Potassium Cla) 875 Mg Tab 1 TAB PO BID for 7 Days, #14 TAB 0 Refills Prov: YAYA SARGENT 09/15/24 Discharged With: Self Critical Care Note Critical Care Time?: No Stability Stability form required: No Heart Score Heart Score: Heart Score Response (Comments) Value History N/A 0 EKG N/A 0 Age N/A 0 Risk Factors N/A 0 Troponin N/A 0 Total 0 YAYA SARGENT Sep 15, 2024 19:53
[2024-09-15 19:55] VITALS: BP 108/80; PULSE 104; RESP 18; TEMP 98.6; O2SAT 94
[2024-09-15] MEDS: cefTRIAXone SOD 1,000 MG VL ONE (20:10)
[2024-09-15] MEDS: cefTRIAXone SOD 1,000 MG VL IM ONE (20:34)
== END 2024-09-15 20:35 | disposition home or self-care (01) ==
LOC: ER 19:42
DX: L03.317 Cellulitis of buttock (principal); M19.90 Unspecified osteoarthritis, unspecified site; M10.9 Gout, unspecified; I21.9 Acute myocardial infarction, unspecified; Z79.899 Other long term (current) drug therapy; Z79.890 Hormone replacement therapy; Z79.82 Long term (current) use of aspirin
CPT/HCPCS: 96372; 99283; J0696

== ENCOUNTER 2024-12-02 19:19 | Emergency (ER) | payer MEDICARE, MEDICAID ==
[~2024-12-02] VITALS: Ht 172.7 cm; Wt 135.4 kg
[~2024-12-02 19:19] MED LIST changes: +ACET500T58 PO; +AMOX875T4 PO
[2024-12-02 19:20] VITALS: BP 144/97; PULSE 95; RESP 18; TEMP 98.4; O2SAT 96
--- NOTE | 2024-12-02 20:37 | ED.PDOC ---
History of Present Illness HPI Comments This is a 59-year-old male with history of gout, rheumatoid arthritis who presented to the ER with a chief complaint of right elbow pain for the past 2 days, patient woke up with her right upper extremity stiffness 2 days back and is reporting swelling of the elbow for over the past few weeks, denies fever, chills, weight loss. Active and passive range of motion are intact. Denies any purulent drainage or wound. Patient seen and examined in ER lobby. Intact active and passive range of motion. Right elbow is swollen, non erythematous, nontender and no drainage noted. X-ray shows chronic bursitis. Chief Complaint: Upper Extremity Time Seen by MD: 20:30 Primary Care Provider: GALILEO Allergies: Coded Allergies: NO KNOWN ALLERGIES (Unverified , 08/15/21) Home Meds Active Scripts Indomethacin (Indomethacin) 50 Mg Cap, 1 CAP PO TID PRN for 15 Days, #30 CAP 0 Refills Prov:JAMES SCANLON RESIDENT 12/02/24 Diclofenac Epolamine (Flector) 1.3 % Dis, 1.3 % TD TIDPRN PRN for 10 Days, #3 DIS 0 Refills Prov:JAMES SCANLON RESIDENT 12/02/24 Acetaminophen (Acetaminophen) 500 Mg Tab, 500 MG PO Q4HPRN, #30 TAB 0 Refills Prov:YAYA SARGENT 09/15/24 Amoxicillin & Pot Clavulanate (Amoxicillin/Potassium Cla) 875 Mg Tab, 1 TAB PO BID for 7 Days, #14 TAB 0 Refills Prov:YAYA SARGENT 09/15/24 Methylprednisolone (Medrol Dosepak) 4 Mg Sd, 4 MG PO UD, #21 TAB UAD Prov:SHANNON MOORE NP 08/19/24 Sulfamethoxazole W/Trimethopri (Bactrim Ds Tablet) 1 Tab Tb, 1 TAB PO BID for 7 Days, #14 TAB 0 Refills Prov:SHANNON MOORE NP 08/19/24 Sulfamethoxazole W/Trimethopri (Bactrim Ds Tablet) 1 Tab Tb, 1 TAB PO BID for 14 Days, #28 TAB Prov:JORJE PRESCOTT 04/23/24 Cefpodoxime Proxetil (Cefpodoxime Proxetil) 200 Mg Tab, 1 TAB PO BID for 5 Days, #10 TAB Prov:MIKAYLA DIAZ RESIDENT 10/31/23 Atorvastatin Calcium (ATORVASTATIN CALCIUM) 20 Mg Tab, 40 MG PO HS for 90 Days, #180 TAB Prov:YESENIA CARDENAS RESIDENT 09/04/23 Levothyroxine Sodium (Levothyroxine Sodium) 25 Mcg Tab, 75 MCG PO QAM@0600 for 90 Days, #90 TAB Prov:YESENIA CARDENAS RESIDENT 09/04/23 Aspirin (Aspirin Low Dose) 81 Mg Tab, 81 MG PO DAILY for 90 Days, #90 TAB Prov:YESENIA CARDENAS RESIDENT 09/04/23 Allopurinol (ZYLOPRIM TABLET) 300 Mg Tb, 300 MG PO DAILY for 30 Days, #30 TAB 3 Refills Prov:SHANNAN MENDEZ MD 08/21/21 Reported Medications Indomethacin (Indomethacin) 50 Mg Cap, 50 MG PO BIDWM for gout for 30 Days, #60 MG 09/01/23 Mode of Arrival: Ambulatory Past Medical History PAST MEDICAL HISTORY: Arthritis, Gout, [place] Surgical History: Denies all surgeries Family History Family History: Unknown Social History Smoker: Non-Smoker Alcohol: Denies ETOH Use Drugs: Denies Drug Use Lives In: Home Constitutional: denies: chills, diaphoresis, fatigue, fever, malaise, sweats, weakness, others EENTM: denies: blurred vision, double vision, ear bleeding, ear discharge, ear drainage, ear pain, ear ringing, eye pain, eye redness, hearing loss, mouth pain, mouth swelling, nasal discharge, nose bleeding, nose congestion, nose pain, photophobia, tearing, throat pain, throat swelling, voice changes, others Respiratory: denies: cough, hemoptysis, orthopnea, SOB at rest, shortness of breath, SOB with excertion, stridor, wheezing, others Cardiovascular: denies: chest pain, dizzy spells, diaphoresis, Dyspnea on exertion, edema, irregular heart beat, left arm pain, lightheadedness, palpitations, PND, syncope, others Gastrointestinal: denies: abdomen distended, abdominal pain, blood streaked bowels, constipated, diarrhea, dysphagia, difficulty swallowing, hematemesis, melena, nausea, poor appetite, poor fluid intake, rectal bleeding, rectal pain, vomiting, others Genitourinary: denies: burning, dysuria, flank pain, frequency, hematuria, incontinence, penile discharge, penile sore, pain, testicle pain, testicle swelling, urgency, others Neurological: denies: dizziness, fainting, headache, left sided numbness, left sided weakness, numbness, paresthesia, pre-existing deficit, right sided numbness, right sided weakness, seizure, speech problems, tingling, tremors, weakness, others Musculoskeletal: reports: joint pain, joint swelling Integumetry: denies: bruises, change in color, change in hair/nails, dryness, laceration, lesions, lumps, rash, wounds, others Allergic/Immunocompromised: denies: Difficulty Healing, Frequent Infections, Hives, Itching, others Hematologic/Lymphatic: denies: anemia, blood clots, easy bleeding, easy bruising, swollen glands, others Endocrine: denies: excessive hunger, excessive sweating, excessive thirst, excessive urination, flushing, intolerance to cold, intolerance to heat, unexplained weight gain, unexplained weight loss, others Psychiatric: denies: anxiety, bipolar disorder, depression, hopeless, panic disorder, schizophrenia, sleepless, suicidal, others Physical Exam General Appearance: No Apparent Distress, Normal HEENT: Normal ENT Inspection, Pharynx Normal, TMs Normal Neck: Full Range of Motion, Non-Tender, Normal, Normal Inspection Respiratory: Chest Non-Tender, Lungs Clear, No Accessory Muscle Use, No Respiratory Distress, Normal Breath Sounds Cardiovascular: No Edema, No JVD, No Murmur, No Gallop, Normal Peripheral Pulses, Regular Rate/Rhythm Breast Exam: Deferred Gastrointestinal: No Organomegaly, Non Tender, No Pulsatile Mass, Normal Bowel Sounds, Soft Genitalia: Deferred Pelvic: Deferred Rectal: Deferred Extremities: No calf tenderness, Normal capillary refill, Normal inspection, Normal range of motion, Non-tender, No pedal edema, Swelling, Tender, Other (Right upper extremity stiff, but normal range of motion active and passive. Swelling over right olecranon process) Musculoskeletal : Apperance: Normal Neurologic: Alert, machine rebuilder II-XII nml as Tested, No Motor Deficits, Normal Affect, Normal Mood, No Sensory Deficits Cerebellar Function: Normal Reflexes: Normal Skin: Dry, Normal Color, Warm Lymphatic: No Adenopathy Was a procedure done? Was a procedure done?: No Images 1 - Right elbow x-ray Differential Dx Considerations may include: Right elbow fracture/olecranon bursitis/tendinitis/tennis elbow/muscle spasm X-Ray, Labs, Meds, VS Vital Signs Date Time Temp Pulse Resp B/P (MAP) Pulse Ox O2 Delivery O2 Flow Rate FiO2 12/02/24 23:22 Room Air* 0 21 12/02/24 19:20 98.4 95 18 144/97 96 98.4 Current Medications Medications (Trade) Dose Ordered Sig/Anna Route Start Time Stop Time Status Last Admin Ketorolac Tromethamine (Toradol Injection) 15 mg ONCE ONCE IM 12/02/24 20:45 12/02/24 21:03 DC 12/02/24 21:23 Cyclobenzaprine HCl (Flexeril Tablet) 10 mg ONCE ONCE PO 12/02/24 20:45 12/02/24 21:03 DC 12/02/24 21:25 Time of 1ST Reevaluation: 22:00 Reevaluation 1ST: Improved Patient Education/Counseling: Diagnosis, Treatment, Need For Follow Up Family Education/Counseling: No Family Present SEPSIS Sepsis Screen Date sepsis recognized/suspect: Dec 02, 2024 Time Sepsis recognized/suspect: 1921 Recent Procedure: No On Antibiotic Therapy: No Respiratory Rate >20: No Heart Rate >90: Yes Temp<36 C (96.8 F) or >38.3 C: No SBP <90 or MAP <65 mmHG: No New Acute Mental Status Change: No Is the patient on CPAP, BIPAP,: No Physician Orders R Elbow 2v Xray (12/02/24 20:34) Schedule For Dc Clinic F/U (12/02/24 23:10) Vital Signs Date Time Temp Pulse Resp B/P (MAP) Pulse Ox O2 Delivery O2 Flow Rate FiO2 12/02/24 23:22 Room Air* 0 21 12/02/24 19:20 98.4 95 18 144/97 96 98.4 Medications Medications Dose Ordered Sig/Anna Route Start Time Stop Time Status Last Admin Dose Admin Cyclobenzaprine HCl 10 mg ONCE ONCE PO 12/02/24 20:45 12/02/24 21:03 DC 12/02/24 21:25 Ketorolac Tromethamine 15 mg ONCE ONCE IM 12/02/24 20:45 12/02/24 21:03 DC 12/02/24 21:23 Departure 1 Departure Time of Disposition: 23:00 Impression: Primary Impression: Olecranon bursitis Additional Impression: Olecranon bursitis of right elbow Disposition: HOME / SELF CARE / HOMELESS Condition: Stable Referrals Right elbow x-ray shows No definite fracture seen. Alignment is maintained Diffuse soft tissue following of the olecranon with multiple rounded areas of soft tissue mineralization. This may reflect a chronic bursitis. Patient's pain adequately controlled on 1 dose of ketorolac. Prescribed diclofenac ointment, renewed indomethacin Follow up with primary care physician Follow up with discharge clinic e-Prescriptions Indomethacin (Indomethacin) 50 Mg Cap 1 CAP PO TID PRN for 15 Days, #30 CAP 0 Refills Prov: JAMES SCANLON 12/02/24 Diclofenac Epolamine (Flector) 1.3 % Dis 1.3 % TD TIDPRN PRN for 10 Days, #3 DIS 0 Refills Prov: JAMES SCANLON 12/02/24 Discharged With: Self Critical Care Note Critical Care Time?: No Stability Stability form required: No JAMES SCANLON Dec 02, 2024 20:37
--- NOTE | 2024-12-02 21:10 | DVH ---
CLINICAL INDICATION: elbow pain and swelling TECHNIQUE: XYXY R ELBOW 2V XRAY Comparison: XY R HAND 3 VIEW XRAY on DOS: 05/27/24 FINDINGS/IMPRESSION: : No definite fracture seen. Alignment is maintained Diffuse soft tissue following of the olecranon with multiple rounded areas of soft tissue mineralizat ion. This may reflect a chronic bursitis.
[2024-12-02] MEDS: KETOROLAC TROMETH 30 MG/ML 1ML VIAL IM ONE (21:23)
[2024-12-02] MEDS: CYCLOBENZAPRINE HCL 10 MG TAB PO ONE (21:25)
[2024-12-02] MEDS ORDERED: DICL1.3P TD (21:29)
[2024-12-02] MEDS ORDERED: INDO50CA82 PO (22:58)
== END 2024-12-02 23:21 | disposition home or self-care (01) ==
LOC: ER 19:19
DX: M70.21 Olecranon bursitis, right elbow (principal); Z79.899 Other long term (current) drug therapy
CPT/HCPCS: 73070; 96372; 99283; J1885

== ENCOUNTER 2025-02-26 17:08 | Inpatient (IN) | payer MEDICARE, MEDICAID ==
[~2025-02-26] VITALS: Ht 172.7 cm; Wt 138.7 kg
[~2025-02-26 17:08] MED LIST changes: +DICL1.3P TD
--- NOTE | 2025-02-26 17:20 | ECG ---
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
--- NOTE | 2025-02-26 17:32 | ED.PDOC ---
HPI Comments 59 y.o male with PMHX of CVA and gout, presents to the ED for a chief complaint of chest pain associated with SOB, nausea and fever that started this morning. Patient describes pain as a pressure, states presented at rest while laying down and progressively become more persistent with left arm numbness. Patient states pain is non radiating and stays at the center of his chest. He denies any vomiting, chills, or leg swelling. Chief Complaint: Chest Pain Time Seen by MD: 17:18 Primary Care Provider: GALILEO Reviewed Notes: Nurses Notes, Medications, Allergies Allergies: Coded Allergies: NO KNOWN ALLERGIES (Unverified , 08/15/21) Home Meds Active Scripts Indomethacin (Indomethacin) 50 Mg Cap, 1 CAP PO TID PRN for 15 Days, #30 CAP 0 Refills Prov:JAMES SCANLON RESIDENT 12/02/24 Diclofenac Epolamine (Flector) 1.3 % Dis, 1.3 % TD TIDPRN PRN for 10 Days, #3 DIS 0 Refills Prov:JAMES SCANLON RESIDENT 12/02/24 Acetaminophen (Acetaminophen) 500 Mg Tab, 500 MG PO Q4HPRN, #30 TAB 0 Refills Prov:YYAA SARGENT 09/15/24 Amoxicillin & Pot Clavulanate (Amoxicillin/Potassium Cla) 875 Mg Tab, 1 TAB PO BID for 7 Days, #14 TAB 0 Refills Prov:YAYA SARGENT 09/15/24 Methylprednisolone (Medrol Dosepak) 4 Mg Sd, 4 MG PO UD, #21 TAB UAD Prov:SHANNON MOORE MECHANICAL LABORATORY TECHNICIAN 08/19/24 Sulfamethoxazole W/Trimethopri (Bactrim Ds Tablet) 1 Tab Tb, 1 TAB PO BID for 7 Days, #14 TAB 0 Refills Prov:SHANNON MOORE MECHANICAL LABORATORY TECHNICIAN 08/19/24 Sulfamethoxazole W/Trimethopri (Bactrim Ds Tablet) 1 Tab Tb, 1 TAB PO BID for 14 Days, #28 TAB Prov:JORJE PRESCOTT 04/23/24 Cefpodoxime Proxetil (Cefpodoxime Proxetil) 200 Mg Tab, 1 TAB PO BID for 5 Days, #10 TAB Prov:MIKAYLA DIAZ 10/31/23 Atorvastatin Calcium (ATORVASTATIN CALCIUM) 20 Mg Tab, 40 MG PO HS for 90 Days, #180 TAB Prov:YESENIA CARDEANS RESIDENT 09/04/23 Levothyroxine Sodium (Levothyroxine Sodium) 25 Mcg Tab, 75 MCG PO QAM@0600 for 90 Days, #90 TAB Prov:YESENIA CARDENAS RESIDENT 09/04/23 Aspirin (Aspirin Low Dose) 81 Mg Tab, 81 MG PO DAILY for 90 Days, #90 TAB Prov:YESENIA CARDENAS RESIDENT 09/04/23 Allopurinol (ZYLOPRIM TABLET) 300 Mg Tb, 300 MG PO DAILY for 30 Days, #30 TAB 3 Refills Prov:SHANNAN MENDEZ MD 08/21/21 Reported Medications Indomethacin (Indomethacin) 50 Mg Cap, 50 MG PO BIDWM for gout for 30 Days, #60 MG 09/01/23 Information Source: Patient Mode of Arrival: Ambulatory Severity: Moderate Timing: Hours Duration: Since onset Location: Substernal Radiation: No Radiation Quality: Pressure Onset: At Rest Cardiac Risk Factors: Family History PE Risk Factors: None History of: None Associated Signs and Symptoms: SOB Past Medical History PAST MEDICAL HISTORY: Arthritis, CVA, Gout Surgical History (Other): left foot Family History Family History: Family hx of heart louis, Family hx of HTN Social History Smoker: Non-Smoker Alcohol: Denies ETOH Use Drugs: Denies Drug Use Lives In: Home Constitutional: reports: fever; denies: chills, diaphoresis, fatigue, malaise, sweats, weakness, others EENTM: denies: blurred vision, double vision, ear bleeding, ear discharge, ear drainage, ear pain, ear ringing, eye pain, eye redness, hearing loss, mouth pain, mouth swelling, nasal discharge, nose bleeding, nose congestion, nose pain, photophobia, tearing, throat pain, throat swelling, voice changes, others Respiratory: reports: SOB at rest, shortness of breath, SOB with excertion; denies: cough, hemoptysis, orthopnea, stridor, wheezing, others Cardiovascular: reports: chest pain; denies: dizzy spells, diaphoresis, Dyspnea on exertion, edema, irregular heart beat, left arm pain, lightheadedness, palpitations, PND, syncope, others Gastrointestinal: denies: abdomen distended, abdominal pain, blood streaked bowels, constipated, diarrhea, dysphagia, difficulty swallowing, hematemesis, melena, nausea, poor appetite, poor fluid intake, rectal bleeding, rectal pain, vomiting, others Genitourinary: denies: burning, dysuria, flank pain, frequency, hematuria, incontinence, penile discharge, penile sore, pain, testicle pain, testicle swelling, urgency, others Neurological: reports: numbness (left arm ); denies: dizziness, fainting, headache, left sided numbness, left sided weakness, paresthesia, pre-existing deficit, right sided numbness, right sided weakness, seizure, speech problems, tingling, tremors, weakness, others Musculoskeletal: denies: back pain, gout, joint pain, joint swelling, muscle pain, muscle stiffness, neck pain, others Integumetry: denies: bruises, change in color, change in hair/nails, dryness, laceration, lesions, lumps, rash, wounds, others Allergic/Immunocompromised: denies: Difficulty Healing, Frequent Infections, Hives, Itching, others Hematologic/Lymphatic: denies: anemia, blood clots, easy bleeding, easy bruising, swollen glands, others Endocrine: denies: excessive hunger, excessive sweating, excessive thirst, excessive urination, flushing, intolerance to cold, intolerance to heat, unexplained weight gain, unexplained weight loss, others Psychiatric: denies: anxiety, bipolar disorder, depression, hopeless, panic disorder, schizophrenia, sleepless, suicidal, others All Other Systems: Reviewed and Negative Physical Exam General Appearance: Moderate Distress HEENT: Normal ENT Inspection, Pharynx Normal, TMs Normal Neck: Full Range of Motion, Non-Tender, Normal, Normal Inspection Respiratory: Chest Non-Tender, Lungs Clear, No Accessory Muscle Use, No Respiratory Distress, Normal Breath Sounds Cardiovascular: No Edema, No JVD, No Murmur, No Gallop, Tachycardia Breast Exam: Deferred Gastrointestinal: No Organomegaly, Non Tender, No Pulsatile Mass, Normal Bowel Sounds, Soft Genitalia: Deferred Pelvic: Deferred Rectal: Deferred Extremities: No calf tenderness, Normal capillary refill, Normal inspection, Normal range of motion, Non-tender, No pedal edema Musculoskeletal : Apperance: Normal Neurologic: Alert, barrel leveler II-XII nml as Tested, No Motor Deficits, Normal Affect, Normal Mood, No Sensory Deficits Cerebellar Function: Normal Reflexes: Normal Skin: Dry, Normal Color, Warm Lymphatic: No Adenopathy EKG EKG : Pulse Rate (adult): 106 Cardiac Rhythm: ST Was a procedure done? Was a procedure done?: No CP Differential Dx Differential Diagnosis: Anxiety / Panic Attack, Electrolyte Disorder, Sinus Tachycardia Differential Diagnosis: Angina, Chest Wall Pain, Cholelithiasis, Costochondritis, Pericarditis X-Ray, Labs, Meds, VS Vital Signs Date Time Temp Pulse Resp B/P (MAP) Pulse Ox O2 Delivery O2 Flow Rate FiO2 02/26/25 17:32 106 02/26/25 17:18 106 02/26/25 17:10 98.3 108 20 136/89 97 98.3 Lab Test 02/26/25 17:28 Range/Units White Blood Count 7.7 4.4-10.8 10^3/uL Red Blood Count 5.20 4.5-5.90 10^6/uL Hemoglobin 14.7 13.5-17.5 g/dL Hematocrit 44.1 41.0-53.0 % Mean Corpuscular Volume 84.9 80.0-100.0 fL Mean Corpuscular Hemoglobin 28.4 28.0-32.0 pg Mean Corpuscular Hemoglobin Concent 33.4 32.0-36.0 g/dL Red Cell Distribution Width 16.8 H 11.8-14.3 % Platelet Count 281 140-450 10^3/uL Mean Platelet Volume 7.1 6.9-10.8 fL Neutrophils (%) (Auto) 72.6 37.0-80.0 % Lymphocytes (%) (Auto) 18.8 10.0-50.0 % Monocytes (%) (Auto) 5.3 0.0-12.0 % Eosinophils (%) (Auto) 2.3 0.0-7.0 % Basophils (%) (Auto) 1.0 0.0-2.0 % Neutrophils # (Auto) 5.6 1.6-8.6 10 ^3/uL Lymphocytes # (Auto) 1.4 0.4-5.4 10 ^3/uL Monocytes # (Auto) 0.4 0-1.3 10 ^3/uL Eosinophils # (Auto) 0.2 0-0.8 10 ^3/uL Basophils # (Auto) 0.1 0-0.2 10 ^3/uL Nucleated Red Blood Cells 0.1 % Sodium Level 140 136-145 mmol/L Potassium Level 3.9 3.5-5.1 mmol/L Chloride Level 104 98-107 mmol/L Carbon Dioxide Level 24 20-31 mmol/L Anion Gap 12 5-15 Blood Urea Nitrogen 17 9-23 mg/dL Creatinine 1.23 0.700-1.30 mg/dL Glomerular Filtration Rate Calc 68 >90 mL/min BUN/Creatinine Ratio 13.8 10.0-20.0 Serum Glucose 93 74-106 mg/dL Calcium Level 9.5 8.7-10.4 mg/dL Troponin I High Sensitivity 3 L </=54 ng/L Current Medications Medications (Trade) Dose Ordered Sig/Anna Route Start Time Stop Time Status Last Admin Aspirin 162 mg ONCE ONCE PO 02/26/25 17:30 02/26/25 17:31 DC 02/26/25 18:14 IV Hep-Lock was established The patient was given aspirin 162 mg by mouth The patient's CBC and chemistry panel is within normal limits The chest x-ray shows: No sign of any abnormalities The patient is being admitted to the hospitalist Images Reviewed?: Images reviewed and evaluated by me Time of 1ST Reevaluation: 17:29 Reevaluation 1ST: Unchanged Patient Education/Counseling: Diagnosis, Treatment, Prognosis Family Education/Counseling: No Family Present SEPSIS Sepsis Screen Date sepsis recognized/suspect: Feb 26, 2025 Time Sepsis recognized/suspect: 1710 Recent Procedure: No On Antibiotic Therapy: No Respiratory Rate >20: No Heart Rate >90: Yes Temp<36 C (96.8 F) or >38.3 C: No SBP <90 or MAP <65 mmHG: No New Acute Mental Status Change: No Is the patient on CPAP, BIPAP,: No Physician Orders Chest Xray 1 View (02/26/25 17:13) Troponin-I Hs (02/26/25 18:13) Troponin-I Hs (02/26/25 20:13) Electrocardigram (02/26/25 18:13) Electrocardigram (02/26/25 20:13) Heplock Iv (02/26/25 ) Vital Signs Date Time Temp Pulse Resp B/P (MAP) Pulse Ox O2 Delivery O2 Flow Rate FiO2 02/26/25 17:32 106 02/26/25 17:18 106 02/26/25 17:10 98.3 108 20 136/89 97 98.3 Laboratory Tests Test 02/26/25 17:28 White Blood Count 7.7 10^3/uL (4.4-10.8) Medications Medications Dose Ordered Sig/Anna Route Start Time Stop Time Status Last Admin Dose Admin Aspirin 162 mg ONCE ONCE PO 02/26/25 17:30 02/26/25 17:31 DC 02/26/25 18:14 Departure 1 Departure Time of Disposition: 18:38 Impression: Primary Impression: Acute chest pain Additional Impression: Acute coronary syndrome Disposition: ADMITTED INPATIENT Admit to: Tele Condition: Fair Critical Care Note Critical Care Time?: Yes (35 min-critical care time only) Stability Stability form required: Yes Unstable for transfer: Telemetry monitoring (Telemetry monitoring required), ED Physician Assesment (Clinical assesment) Heart Score Heart Score: Heart Score Response (Comments) Value History Moderate Suspicious 1 EKG Normal 0 Age 45-64 1 Risk Factors 1 or 2 risk factors 1 Troponin Normal limit 0 Total 3 I personally scribed for YOVANNY ARNOLD MD ([email or web address]) on 02/26/25 at 17:32. Electronically submitted by Pam Rodriguez ([facility]). YOVANNY ARNOLD MD Feb 26, 2025 17:32
[2025-02-26 17:35] LABS: Hematocrit 44.1 % (41.0-53.0); Hemoglobin 14.7 g/dL (13.5-17.5); Mean Corpuscular Hemoglobin 28.4 pg (28.0-32.0); Mean Corpuscular Volume 84.9 fL (80.0-100.0); Nucleated Red Blood Cells % 0.1 %
[2025-02-26 17:54] LABS: Chloride 104 mmol/L (98-107); Potassium 3.9 mmol/L (3.5-5.1); Sodium 140 mmol/L (136-145)
[2025-02-26 17:55] LABS: Anion Gap 12 (5-15); Carbon Dioxide 24 mmol/L (20-31)
[2025-02-26 17:56] LABS: Calcium 9.5 mg/dL (8.7-10.4)
[2025-02-26 18:01] LABS: BUN/Creatinine Ratio 13.8 (10.0-20.0); Blood Urea Nitrogen 17 mg/dL (9-23); Glucose 93 mg/dL (74-106)
--- NOTE | 2025-02-26 18:30 | DVH ---
CHEST RADIOGRAPH INDICATION: CHEST PAIN TECHNIQUE: XY CHEST XRAY 1 VIEW Comparison: None FINDINGS: The cardiac silhouette is unremarkable. The lungs demonstrate no pulmonary airspace consolidation. The pulmonary vasculature is unremarkable. There is no pleural effusion. There is no pneumothorax. IMPRESSION: No pulmonary airspace consolidation.
--- NOTE | 2025-02-26 19:59 | ECG ---
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
[2025-02-26] MEDS: MORPHINE SULFATE 4 MG/ML SYR/VIAL IV ONE (22:37)
[2025-02-26] MEDS: ONDANSETRON HCL 4 MG/2 ML VIAL IV ONE (22:37)
[2025-02-26 23:45] VITALS: PULSE 89; RESP 13; O2SAT 94
[2025-02-27] VITALS (7 sets, daily range): BP systolic 119–131; BP diastolic 68–85; PULSE 60–67; RESP 16–18; TEMP 97.3–97.8; O2SAT 94–100
[2025-02-27] MEDS: ACETAMINOPHEN 325 MG TAB PO SCH (02:07)
[2025-02-27] MEDS: KETOROLAC TROMETH 30 MG/ML 1ML VIAL IV ONE (02:07)
[2025-02-27] MEDS: SODIUM CHLORIDE 0.9% 500 ML IV ONE (03:26)
[2025-02-27] MEDS ORDERED: NITROGLYCERIN 0.4 MG SL TAB SL PRN (04:15)
[2025-02-27] MEDS: COLCHICINE 0.6 MG CAP PO ONE (04:28)
--- NOTE | 2025-02-27 04:53 | DVHHPRES ---
History of Present Illness Resident Creating Document: DENISE ZHANG RESIDENT History of Present Illness Frank Welch SR is a 59 year old male with past medical history of gout, rheumatoid arthritis, TIA, hypothyroidism who presented to the hospital with complaints of pain in the arm, chest pain since 1 day. he also complains of associated fever and shortness of breath. He rates the chest pain 9 on 10 in intensity, sharp, radiating to the left arm. Patient reports that he was at home asleep when the pain started and that it woke him up from sleep. PMHx:gout, rheumatoid arthritis, TIA, hypothyroidism PSHx: None Family history: prostate cancer in father Social history: ex-smoker, 26 pack years Home medication: indomethacin Allergic history: none Review of Systems Review of Systems General: patient denies fever, fatigue, weaknes, sweating, any recent changes in appetite and weight HEENT: No headaches, visiual changes, hearing loss, tinnitus, nasal congestion and discharge, and sore throat. Cardiovascular: complains of chest pain Respiratory: No cough, and wheezing. Gastrointestinal: Denies nausea, vomiting, dysphagia, odynophagia, heartburn, abdominal pain, flatulence, bloating, diarrhea, constipation, change in stool, or blood in stool. Genitourinary: No dysuria, hematuria, discharge, frequency, urgency, nocturia, incontinence, and urinary retention. Endocrine: No heat or cold intolerance, polydipsia, polyuria, and polyphagia. Neurological: No dizziness, extremity weakness and numbness, tremors, gait disturbance, seizures, and memory impairment. Psychiatric: Denies depression, anxiety,or insomnia. Musculoskeletal: complains of pain in the arm Skin: No rashes, itching, skin lesion, changes in hair, nail, skin texture and breast. Hematologic/Lymphatic: Denies easy bruising, bleeding tendencies, or lymph node enlargement. Allergies: Coded Allergies: NO KNOWN ALLERGIES (Unverified , 08/15/21) Medications Current Medications Medications Dose Ordered Sig/Anna Route Start Time Stop Time Status Last Admin Dose Admin Enoxaparin Sodium 40 mg DAILY SC 02/27/25 10:00 Acetaminophen 650 mg Q6HR PO 02/27/25 02:00 02/27/25 02:07 650 MG Ketorolac Tromethamine 15 mg Q6HR IV 02/27/25 07:00 03/04/25 06:59 Aspirin 81 mg DAILY PO 02/27/25 10:00 Atorvastatin Calcium 40 mg HS PO 02/27/25 22:00 Levothyroxine Sodium 75 mcg QAM@0600 PO 02/27/25 06:00 Allopurinol 300 mg DAILY PO 02/27/25 10:00 Nitroglycerin 0.4 mg Q5MINP PRN SL 02/27/25 04:15 Colchicine 0.6 mg Q12HR PO 02/27/25 10:00 Exam Vital Signs Vital Signs Date Time Temp Pulse Resp B/P (MAP) Pulse Ox O2 Delivery O2 Flow Rate FiO2 02/27/25 03:26 92 02/27/25 03:00 106/51 (69) 89 02/27/25 02:00 28 02/26/25 23:45 Room Air* 0 21 02/26/25 23:45 98.0 98.0 Exam General Appearance: Alert, Oriented X3, Cooperative, No acute distress HEENT: Atraumatic, PERRLA, EOMI, Mucous membrane moist/pink Respiratory: Clear to auscultation, Normal air movement Cardiovascular: Regular rate, Normal S1, Normal S2, No murmurs, chest wall tenderness present Abdominal: Normal bowel sounds, Soft, No tenderness, No hepatospenomegaly, No masses Extremities: swelling, tenderness and erythema in the left arm Skin: No rashes, No breakdown, No significant lesion Neuro: Normal gait, Normal speech, Strength at 5/5 X4 ext, Normal tone, Sensation intact, Cranial nerves 3-12 NL, Reflexes 2+ Psych/Mental Status: Mental status NL, Mood NL Labs/Xrays Labs Test 02/26/25 18:34 02/26/25 17:28 Range/Units Troponin I High Sensitivity 3 L </=54 ng/L White Blood Count 7.7 4.4-10.8 10^3/uL Red Blood Count 5.20 4.5-5.90 10^6/uL Hemoglobin 14.7 13.5-17.5 g/dL Hematocrit 44.1 41.0-53.0 % Mean Corpuscular Volume 84.9 80.0-100.0 fL Mean Corpuscular Hemoglobin 28.4 28.0-32.0 pg Mean Corpuscular Hemoglobin Concent 33.4 32.0-36.0 g/dL Red Cell Distribution Width 16.8 H 11.8-14.3 % Platelet Count 281 140-450 10^3/uL Mean Platelet Volume 7.1 6.9-10.8 fL Neutrophils (%) (Auto) 72.6 37.0-80.0 % Lymphocytes (%) (Auto) 18.8 10.0-50.0 % Monocytes (%) (Auto) 5.3 0.0-12.0 % Eosinophils (%) (Auto) 2.3 0.0-7.0 % Basophils (%) (Auto) 1.0 0.0-2.0 % Neutrophils # (Auto) 5.6 1.6-8.6 10 ^3/uL Lymphocytes # (Auto) 1.4 0.4-5.4 10 ^3/uL Monocytes # (Auto) 0.4 0-1.3 10 ^3/uL Eosinophils # (Auto) 0.2 0-0.8 10 ^3/uL Basophils # (Auto) 0.1 0-0.2 10 ^3/uL Nucleated Red Blood Cells 0.1 % Sodium Level 140 136-145 mmol/L Potassium Level 3.9 3.5-5.1 mmol/L Chloride Level 104 98-107 mmol/L Carbon Dioxide Level 24 20-31 mmol/L Anion Gap 12 5-15 Blood Urea Nitrogen 17 9-23 mg/dL Creatinine 1.23 0.700-1.30 mg/dL Glomerular Filtration Rate Calc 68 >90 mL/min BUN/Creatinine Ratio 13.8 10.0-20.0 Serum Glucose 93 74-106 mg/dL Calcium Level 9.5 8.7-10.4 mg/dL SEPSIS Sepsis Screen Date sepsis recognized/suspect: Feb 26, 2025 Time Sepsis recognized/suspect: 2344 Recent Procedure: No On Antibiotic Therapy: No Respiratory Rate >20: No Heart Rate >90: Yes Temp<36 C (96.8 F) or >38.3 C: No SBP <90 or MAP <65 mmHG: No New Acute Mental Status Change: No Is the patient on CPAP, BIPAP,: No Physician Orders Admit (02/26/25 23:22) Allergies (02/26/25 23:22) Code Status (02/26/25 23:22) Enoxaparin Sodium (Lovenox) (02/27/25 10:00) Complete Blood Count (02/27/25 04:00) Comprehensive Metabolic Panel (02/27/25 04:00) Cardiac Diet-2gna,Lofat,Lochol (02/27/25 Breakfast) Condition: Fair (02/26/25 23:22) Electrocardigram (02/27/25 01:28) Thyroid Stimulating Hormone (02/27/25 01:54) Hemoglobin A1c (02/27/25 01:54) Drug Screen (02/27/25 01:54) Urinalysis (02/27/25 01:54) PTPTT (02/27/25 01:54) Echo 2d Mode Cardiac Dop (02/27/25 01:54) Lipid Panel (02/27/25 04:00) Acetaminophen Tablet (Tylenol Tablet) (02/27/25 02:00) Ketorolac Injection (Toradol Injection) (02/27/25 07:00) Aspirin Enteric Coated Tablet (Ecotrin E (02/27/25 10:00) Atorvastatin (Lipitor) (02/27/25 22:00) Levothyroxine Tablet (Synthroid Tablet) (02/27/25 06:00) Allopurinol Tablet (Zyloprim Tablet) (02/27/25 10:00) Troponin-I Hs (02/27/25 02:13) Nitroglycerin Sublingual (Ntrostat Subli (02/27/25 04:15) Colchicine (Colcrys) (02/27/25 10:00) Erythrocyte Sedimentation Rate (02/27/25 04:07) C-Reactive Protein (02/27/25 04:07) Vital Signs Date Time Temp Pulse Resp B/P (MAP) Pulse Ox O2 Delivery O2 Flow Rate FiO2 02/27/25 03:26 92 02/27/25 03:00 91 106/51 (69) 89 02/27/25 02:33 65 02/27/25 02:00 59 28 75/56 (62) 94 02/27/25 00:00 89 14 130/80 (97) 93 02/27/25 00:00 63 02/26/25 23:45 89 13 94 Room Air* 0 21 02/26/25 23:45 98.0 89 13 148/89 (108) 94 98.0 02/26/25 23:37 80 17 119/82 02/26/25 22:37 98 02/26/25 22:37 98 19 154/97 02/26/25 22:23 98.3 98 19 159/97 (117) 95 98.3 Laboratory Tests Test 02/26/25 17:28 White Blood Count 7.7 10^3/uL (4.4-10.8) Medications Medications Dose Ordered Sig/Anna Route Start Time Stop Time Status Last Admin Dose Admin Acetaminophen 650 mg Q6HR PO 02/27/25 02:00 02/27/25 02:07 650 MG Aspirin 162 mg ONCE ONCE PO 02/26/25 17:30 02/26/25 17:31 DC 02/26/25 18:14 162 MG Ketorolac Tromethamine 30 mg ONCE ONCE IV 02/27/25 02:00 02/27/25 02:05 DC 02/27/25 02:07 30 MG Morphine Sulfate 4 mg ONCE ONCE IV 02/26/25 20:00 02/26/25 20:01 DC 02/26/25 22:37 4 MG Ondansetron HCl 4 mg ONCE ONCE IV 02/26/25 20:00 02/26/25 20:01 DC 02/26/25 22:37 4 MG Sodium Chloride 500 ml @ 500 mls/hr Q1H ONCE IV 02/27/25 02:45 02/27/25 03:44 DC 02/27/25 03:26 500 MLS/HR Assessment/Plan Assessment/Plan Assessment and plan Acute gout flare-up Colchicine Toradol , Tylenol ESR, CRP Allopurinol Chest pain possibly due to unstable angina/musculoskeletal pain EKG Troponin negative Echo Aspirin, atorvastatin Nitroglycerin sublingually Telemetry admit Morbid obesity Lifestyle modification Medication nonadherence Counseled about adherence for 11 minutes next Hypothyroidism Continue levothyroxine Severe rheumatoid arthritis Follow up with PCP on discharge History of TIA Follow up with PCP on discharge PUD prophylaxis: not needed DVT prophylaxis: Levonox 40mg Barriers to discharge: Medical diagnosis and management in progress. Patient lives with family. Independent for ADL. PCP: Dr. Pina Specialist Relevent To Admission: None Case discussed with Dr. Yeboah. Code Status: Full Code. Complex patient care discussion needed. Spend total 33 minutes for bedside assessment, case discussion and management. Plan discussed with: Patient My Orders Orders - DENISE ZHANG RESIDENT Procedure Category Date Status Time Admit ADMIT 02/26/25 Transmitted 23:22 Allergies JENNIFER 02/26/25 In Process 23:22 Code Status CODE 02/26/25 Transmitted 23:22 Enoxaparin Sodium PHA 02/27/25 In Process (Lovenox) 10:00 Complete Blood Count LAB 02/27/25 Logged 04:00 Comprehensive LAB 02/27/25 Logged Metabolic Panel 04:00 Cardiac DIET 02/27/25 Transmitted Diet-2gna,Lofat,Lochol Breakfast Condition: Fair JENNIFER 02/26/25 In Process 23:22 Electrocardigram EKG 02/27/25 Logged 01:28 Thyroid Stimulating LAB 02/27/25 Logged Hormone 01:54 Hemoglobin A1c LAB 02/27/25 Logged 01:54 Drug Screen LAB 02/27/25 Logged 01:54 Urinalysis LAB 02/27/25 Logged 01:54 PTPTT LAB 02/27/25 Logged 01:54 Echo 2d Mode Cardiac US 02/27/25 Logged DOP 01:54 Lipid Panel LAB 02/27/25 Logged 04:00 Acetaminophen Tablet PHA 02/27/25 In Process (Tylenol Tablet) 02:00 Ketorolac Injection PHA 02/27/25 In Process (Toradol Injection) 07:00 Aspirin Enteric PHA 02/27/25 In Process Coated Tablet 10:00 Atorvastatin (Lipitor) PHA 02/27/25 In Process 22:00 Levothyroxine Tablet PHA 02/27/25 In Process (Synthroid Tablet) 06:00 Allopurinol Tablet PHA 02/27/25 In Process (Zyloprim Tablet) 10:00 Troponin-I Hs LAB 02/27/25 Logged 02:13 Visit Coding STANDARD RES Billing Provider: JEANNA YEBOAH MD Date of Service if different f: Feb 27, 2025 Common Visit Codes: 27732-VPFMYLU INP/OBS CARE (HIGH) Secondary Visit Codes: [id number] CARE PLAN 30 MINUTES DENISE ZHANG Feb 27, 2025 04:53
[2025-02-27 05:24] LABS: Hematocrit 39.1 % (41.0-53.0); Hemoglobin 13.0 g/dL (13.5-17.5); Mean Corpuscular Hemoglobin 28.1 pg (28.0-32.0); Mean Corpuscular Volume 84.7 fL (80.0-100.0); Nucleated Red Blood Cells % 0.2 %
[2025-02-27 05:26] LABS: Albumin 4.1 g/dL (3.2-4.8); Alkaline Phosphatase 87 U/L (46-116); Anion Gap 10 (5-15); BUN/Creatinine Ratio 11.7 (10.0-20.0); Blood Urea Nitrogen 17 mg/dL (9-23); Carbon Dioxide 22 mmol/L (20-31); Chloride 106 mmol/L (98-107); Potassium 3.6 mmol/L (3.5-5.1); Sodium 138 mmol/L (136-145); Total Protein 7.7 g/dL (5.7-8.2)
[2025-02-27 05:27] LABS: Bilirubin, Total 0.6 mg/dL (0.2-1.0)
[2025-02-27 05:31] LABS: Alanine Aminotransferase < 9 U/L (7-40); Calcium 8.7 mg/dL (8.7-10.4); Cholesterol 201 mg/dL (< 200); Glucose 155 mg/dL (74-106); HDL Cholesterol 27 mg/dL (40-59); Triglycerides 152 mg/dL (< 150)
[2025-02-27 06:05] LABS: INR 1.12 (0.9-1.15); Partial Thromboplastin Time 32.7 SEC (24.5-34.5)
[2025-02-27 06:06] LABS: Prothrombin Time 11.7 sec (9.3-11.8)
[2025-02-27] MEDS: KETOROLAC TROMETH 30 MG/ML 1ML VIAL IV SCH (06:14)
[2025-02-27] MEDS: LEVOTHYROXINE SODIUM 25 MCG TAB PO SCH (06:40)
[2025-02-27 07:33] LABS: Urine Protein, UAD TRACE (Negative)
[2025-02-27 08:04] LABS: Opiate Scree,Urine Pos (NEGATIVE)
[2025-02-27 08:07] LABS: Amphetamine Screen, Urine Neg (NEGATIVE); Barbiturate Scree,Urine Neg (NEGATIVE); Benzodiazephine Screen, Urine Neg (NEGATIVE); Cannabinoid Screen, Urine Neg (NEGATIVE); Cocaine Screen, Urine Neg (NEGATIVE); Phencyclidine Screen, Urine Neg (NEGATIVE)
[2025-02-27] MEDS: ALLOPURINOL 100 MG TAB PO SCH (11:22)
[2025-02-27] MEDS: ASPirin-EC 81 mg tab PO SCH (11:22)
[2025-02-27] MEDS: ENOXAPARIN SOD 40 MG/0.4 ML SYRINGE SC SCH (11:23)
[2025-02-27] MEDS: COLCHICINE 0.6 MG CAP PO SCH (11:23)
--- NOTE | 2025-02-27 12:04 | DVHSR ---
APPROVED REPORT EXAM: Two-dimensional and M-mode echocardiogram with Doppler and color Doppler. Blood Pressure: 119/68 mmHg INDICATION Rule out structural heart disease RISK FACTORS Obesity: Height: 5'8", Weight: 297 DIMENSIONS LVDd 5.5 (3.8-5.7cm) LA (2D) 4.3 (1.9-4.0cm) Aortic Root 4.3 (2.0-3.7cm) LVDs 3.5 (2.5-4.0cm) LA (MM) (1.9-4.0cm) Aortic Cusp Exc 2.2 (1.5-2.0cm) EF (%) 64.0 (55-70%) Rt. Atrium 4.3 (1.9-4.0cm) Asc. Aorta 4.0 cm IVSd 1.3 (0.7-1.1cm) RV (D) (1.8-2.4cm) PWd 1.2 (0.7-1.1cm) Mitral Valve Mitral Mitral Stenosis E wave 0.74m/s MV Mean GR. mmHg A wave 0.95m/s MV Peak GR. mmHg E/A ratio 0.8 2D MVA cm2 DECEL Time 227ms PRESS 1/2 Time ms Aortic Valve Aortic Valve Aortic Stenosis V1 0.97m/s AO Mean GR. 4mmHg V2 1.42m/s AO Peak GR. 8mmHg LVOT Diameter 2.4 (1.8-2.4cm) Doppler MCKINLEY 3.09cm2 Pulmonic Valve V2 1.15m/s Tricuspid Valve TR Velocity 2.72m/s RVSP 33mmHg Other Information Technically limited study due to body habitus. Conclusion 1-Normal right and left ventricle systolic function with estimated ejection fraction of 60-65%. Normal LV wall motion. There is a mild left ventricle hypertrophy. 2-Biatrial dilatation 3-Mild tricuspid regurgitation 4-Mild aortic root (Diameter 4.3 cm) and ascending aorta dilatation (Diameter 4.0 cm). May consider a CTA for further evaluation if clinically correlated
--- NOTE | 2025-02-27 16:24 | DVHPN2 ---
Subjective Patient is here for chest pain with a normal troponin. Patient is complaining of sharp chest pain on and off in the substernal area. Denies any known cardiac history. Also complaining of left upper extremity joint pains. Changes from previous H/P or p: No Changes Objective Vitals Vital Signs Date Time Temp Pulse Resp B/P (MAP) Pulse Ox O2 Delivery O2 Flow Rate FiO2 02/27/25 13:00 97.3 60 16 130/80 (97) 97 97.3 02/27/25 08:17 Room Air* 0 21 Exam HEENT pupils are reactive Neck is supple CV is S1-S2 regular rate and rhythm Diminished breath sounds bases GI positive bowel sound Extremity no edema [employer] no motor deficit Medications Current Medications Medications Dose Ordered Sig/Anna Route Start Time Stop Time Status Last Admin Dose Admin Enoxaparin Sodium 40 mg DAILY SC 02/27/25 10:00 02/27/25 11:23 40 MG Acetaminophen 650 mg Q6HR PO 02/27/25 02:00 02/27/25 12:59 650 MG Ketorolac Tromethamine 15 mg Q6HR IV 02/27/25 07:00 03/04/25 06:59 02/27/25 12:59 15 MG Aspirin 81 mg DAILY PO 02/27/25 10:00 02/27/25 11:22 81 MG Atorvastatin Calcium 40 mg HS PO 02/27/25 22:00 Levothyroxine Sodium 75 mcg QAM@0600 PO 02/27/25 06:00 02/27/25 06:40 75 MCG Allopurinol 300 mg DAILY PO 02/27/25 10:00 02/27/25 11:22 300 MG Nitroglycerin 0.4 mg Q5MINP PRN SL 02/27/25 04:15 Colchicine 0.6 mg Q12HR PO 02/27/25 10:00 02/27/25 11:23 0.6 MG Dimethicone 40 mg QID PO 02/27/25 18:00 Pantoprazole Sodium 40 mg DAILY@0600 PO 02/28/25 06:00 Laboratory Results Laboratory Tests 02/27/25 04:45 Chemistry Test 02/26/25 17:28 02/27/25 04:45 Calcium Level 9.5 mg/dL (8.7-10.4) 8.7 mg/dL (8.7-10.4) Albumin 4.1 g/dL (3.2-4.8) Total Protein 7.7 g/dL (5.7-8.2) Coagulation Test 02/27/25 04:45 Prothrombin Time 11.7 sec (9.3-11.8) Prothrombin Time INR 1.12 (0.9-1.15) Activated Partial Thromboplast Time 32.7 SEC (24.5-34.5) Lipid panel Test 02/27/25 04:45 Cholesterol Level 201 mg/dL (< 200) H HDL Cholesterol 27 mg/dL (40-59) L Triglycerides Level 152 mg/dL (< 150) H LFT Test 02/27/25 04:45 Alanine Aminotransferase (ALT) < 9 U/L (7-40) Alkaline Phosphatase 87 U/L (46-116) Aspartate Amino Transferase (AST) 10 U/L (13-40) L Total Bilirubin 0.6 mg/dL (0.2-1.0) HgA1c, TSH Test 02/27/25 04:45 Hemoglobin A1c 5.4 % A1C (<5.7) Thyroid Stimulating Hormone (TSH) 23.50 uIU/mL (0.55-4.78) H Urinalysis Test 02/27/25 07:00 Urine Color Yellow (Yellow) Urine Clarity Clear (Clear) Urine pH 5.5 (5.0-9.0) Urine Specific [place] 1.018 (1.001-1.035) Urine Protein Trace (Negative) H Urine Ketones Negative (Negative) Urine Blood Negative /uL (Negative) Urine Nitrite Negative (Negative) Urine Bilirubin Negative (Negative) Urine Urobilinogen Normal mg/dL (Negative) Urine Leukocyte Esterase 1+ /uL (Negative) Urine RBC 1 /hpf (0 - 3) Urine Microscopic WBC 3 /HPF (0-3) Urine Squamous Epithelial Cells Few /hpf (<5) Urine Bacteria None seen /hpf (None Seen) Urine Hyaline Casts Mod /lpf (0 - 2) Urine Mucus Few (None Seen) Urine Glucose Normal mg/dL (Normal) Assessment/Plan Assessment/Plan 59-year-old male with a known history of morbid obesity classIII, hypertension, dyslipidemia, hypothyroidism, history of gout, rheumatoid arthritis initially presented to the hospital with a left lower extremity joint pain as well as chest pain found to have 1. Chest pain rule out [place] 2. Left upper extremity pain suspected acute gouty flare-up 3. Rheumatoid arthritis 4. Morbid obesity classIII 60 5. Hypothyroidism 6. Acute kidney injury suspected secondary to vasomotor nephropathy -continue current meds, continue colchicine, watch renal functioning, Plan discussed with: Patient My Orders Orders - GLENROY HERBERT MD Procedure Category Date Status Time Free T4 (Free LAB 02/27/25 In Process Thyroxine) 12:55 Free T3 LAB 02/27/25 In Process 12:55 Thyroid Stimulating LAB 02/28/25 Verified Hormone 04:00 Simethicone Tab PHA 02/27/25 In Process (Mylicon Tab) 18:00 Pantoprazole Tablet PHA 02/28/25 In Process (Protonix Tablet) 06:00 Problem List: (1) Chest pain Date of Service: Feb 27, 2025 Billing Provider: GLENROY HERBERT MD Common Visit Codes: [id number] INP/OBS CARE(HIGH) GLENROY HERBERT MD Feb 27, 2025 16:24
[2025-02-27] MEDS: SIMETHICONE 80 MG CHEWABLE TABLET PO ONE (17:01)
[2025-02-27] MEDS: PANTOPRAZOLE 40 MG TAB PO ONE (17:01)
[2025-02-27] MEDS: SIMETHICONE 80 MG CHEWABLE TABLET PO SCH (17:20)
[2025-02-27] MEDS: ATORVASTATIN 20 MG TAB PO SCH (23:14)
[2025-02-28 01:00] VITALS: BP 133/83; PULSE 58; RESP 18; TEMP 98; O2SAT 99
[2025-02-28 05:00] VITALS: BP 131/95; PULSE 64; RESP 17; TEMP 97.8; O2SAT 98
[2025-02-28] MEDS: PANTOPRAZOLE 40 MG TAB PO SCH (05:31)
[2025-02-28 08:00] VITALS: PULSE 57; PULSE 77; RESP 19; O2SAT 95
[2025-02-28 09:00] VITALS: BP 138/79; PULSE 72; RESP 21; TEMP 96.7; O2SAT 94
[2025-02-28 10:43] LABS: Free T3 3.36 pg/mL (2.3-4.2)
[2025-02-28 10:44] LABS: Free T4 (Free Thyroxine) 0.9 ng/dL (0.89-1.76)
[2025-02-28 13:00] VITALS: BP 136/77; PULSE 68; RESP 21; TEMP 96.9; O2SAT 96
[2025-02-28] MEDS ORDERED: METH4PAK PO (16:12)
--- NOTE | 2025-02-28 16:16 | DVHDS2 ---
Discharge Summary Date of Admission Feb 26, 2025 at 23:22 Date of Discharge: Feb 28, 2025 Labs/Diagnostic Data: Laboratory Results Test 02/28/25 06:30 02/27/25 07:00 02/27/25 04:45 Thyroid Stimulating Hormone (TSH) 13.81 uIU/mL (0.55-4.78) Urine Color Yellow (Yellow) Urine Clarity Clear (Clear) Urine pH 5.5 (5.0-9.0) Urine Specific [place] 1.018 (1.001-1.035) Urine Protein Trace (Negative) Urine Ketones Negative (Negative) Urine Blood Negative /uL (Negative) Urine Nitrite Negative (Negative) Urine Bilirubin Negative (Negative) Urine Urobilinogen Normal mg/dL (Negative) Urine Leukocyte Esterase 1+ /uL (Negative) Urine RBC 1 /hpf (0 - 3) Urine Microscopic WBC 3 /HPF (0-3) Urine Squamous Epithelial Cells Few /hpf (<5) Urine Bacteria None seen /hpf (None Seen) Urine Hyaline Casts Mod /lpf (0 - 2) Urine Mucus Few (None Seen) Urine Glucose Normal mg/dL (Normal) Urine Opiates Screen Pos (NEGATIVE) Urine Fentanyl Screen Neg (NEGATIVE) Urine Barbiturates Screen Neg (NEGATIVE) Urine Phencyclidine Screen Neg (NEGATIVE) Urine Amphetamines Screen Neg (NEGATIVE) Urine Benzodiazepines Screen Neg (NEGATIVE) Urine Cocaine Screen Neg (NEGATIVE) Urine Cannabinoids Screen Neg (NEGATIVE) White Blood Count 8.7 10^3/uL (4.4-10.8) Red Blood Count 4.62 10^6/uL (4.5-5.90) Hemoglobin 13.0 g/dL (13.5-17.5) Hematocrit 39.1 % (41.0-53.0) Mean Corpuscular Volume 84.7 fL (80.0-100.0) Mean Corpuscular Hemoglobin 28.1 pg (28.0-32.0) Mean Corpuscular Hemoglobin Concent 33.1 g/dL (32.0-36.0) Red Cell Distribution Width 16.9 % (11.8-14.3) Platelet Count 215 10^3/uL (140-450) Mean Platelet Volume 7.0 fL (6.9-10.8) Neutrophils (%) (Auto) 80.9 % (37.0-80.0) Lymphocytes (%) (Auto) 12.3 % (10.0-50.0) Monocytes (%) (Auto) 5.5 % (0.0-12.0) Eosinophils (%) (Auto) 1.0 % (0.0-7.0) Basophils (%) (Auto) 0.3 % (0.0-2.0) Neutrophils # (Auto) 7.0 10 ^3/uL (1.6-8.6) Lymphocytes # (Auto) 1.1 10 ^3/uL (0.4-5.4) Monocytes # (Auto) 0.5 10 ^3/uL (0-1.3) Eosinophils # (Auto) 0.1 10 ^3/uL (0-0.8) Basophils # (Auto) 0 10 ^3/uL (0-0.2) Nucleated Red Blood Cells 0.2 % Erythrocyte Sedimentation Rate 62 mm/hr (0-20) Prothrombin Time 11.7 sec (9.3-11.8) Prothrombin Time INR 1.12 (0.9-1.15) Activated Partial Thromboplast Time 32.7 SEC (24.5-34.5) Sodium Level 138 mmol/L (136-145) Potassium Level 3.6 mmol/L (3.5-5.1) Chloride Level 106 mmol/L (98-107) Carbon Dioxide Level 22 mmol/L (20-31) Anion Gap 10 (5-15) Blood Urea Nitrogen 17 mg/dL (9-23) Creatinine 1.45 mg/dL (0.700-1.30) Glomerular Filtration Rate Calc 56 mL/min (>90) BUN/Creatinine Ratio 11.7 (10.0-20.0) Serum Glucose 155 mg/dL (74-106) Hemoglobin A1c 5.4 % A1C (<5.7) Calcium Level 8.7 mg/dL (8.7-10.4) Total Bilirubin 0.6 mg/dL (0.2-1.0) Aspartate Amino Transferase (AST) 10 U/L (13-40) Alanine Aminotransferase (ALT) < 9 U/L (7-40) Alkaline Phosphatase 87 U/L (46-116) Troponin I High Sensitivity 3 ng/L (</=54) C-Reactive Protein High Sensitivity 1.85 mg/dL (<1.0) Total Protein 7.7 g/dL (5.7-8.2) Albumin 4.1 g/dL (3.2-4.8) Triglycerides Level 152 mg/dL (< 150) Cholesterol Level 201 mg/dL (< 200) LDL Cholesterol 159 mg/dL (< 100) HDL Cholesterol 27 mg/dL (40-59) Free Thyroxine (T4) Calculated 0.90 ng/dL (0.89-1.76) Free Triiodothyronine (T3) pg/mL 3.36 pg/mL (2.3-4.2) Other Laboratory Tests 02/27/25 04:45 Brief Hx & Hospital Course: 59-year-old male with a known history of morbid obesity classIII, hypertension, dyslipidemia, hypothyroidism, history of gout, rheumatoid arthritis initially presented to the hospital with a left lower extremity joint pain as well as chest pain found to have chest pain ruled out [place]. Patient's has a left upper extremity pain in the joint diagnosed with a acute gouty flare-up. Patient does have known history of rheumatoid arthritis. Patient was treated with the IV pain meds p.o. meds as well as colchicine. Patient's has a acute kidney injury, patient will be given Medrol Condition at Discharge: Stable Final Diagnosis/Problems List 59-year-old male with a known history of morbid obesity classIII, hypertension, dyslipidemia, hypothyroidism, history of gout, rheumatoid arthritis initially presented to the hospital with a left lower extremity joint pain as well as chest pain found to have 1. Chest pain rule out [place] 2. Left upper extremity pain suspected acute gouty flare-up 3. Rheumatoid arthritis 4. Morbid obesity classIII 5. Hypothyroidism Discharge Disposition: Home SNF Discharge Will this Physician continue t: No Discharge Instruct/Medications Diet: Cardiac 2g Na,low cholest Activity: No Restrictions, As Tolerated Follow Up/Referral: Please follow up with the PCP in 1-2 weeks Follow up with the Rheumatology in one week as an outpatient. Medications: Resume home medication, Medrol Dosepak as prescribed Continued Medications: Acetaminophen (Acetaminophen) 500 Mg Tab 500 MG PO Q4HPRN, #30 TAB 0 Refills Allopurinol (Zyloprim Tablet) 300 Mg Tb 300 MG PO DAILY for 30 Days, #30 TAB 3 Refills Amoxicillin & Pot Clavulanate (Amoxicillin/Potassium Cla) 875 Mg Tab 1 TAB PO BID for 7 Days, #14 TAB 0 Refills Aspirin (Aspirin Low Dose) 81 Mg Tab 81 MG PO DAILY for 90 Days, #90 TAB Atorvastatin Calcium (Atorvastatin Calcium) 20 Mg Tab 40 MG PO HS for 90 Days, #180 TAB Cefpodoxime Proxetil (Cefpodoxime Proxetil) 200 Mg Tab 1 TAB PO BID for 5 Days, #10 TAB Diclofenac Epolamine (Flector) 1.3 % Dis 1.3 % TD TIDPRN PRN for 10 Days, #3 DIS 0 Refills Indomethacin (Indomethacin) 50 Mg Cap 50 MG PO BIDWM for gout for 30 Days, #60 MG Indomethacin (Indomethacin) 50 Mg Cap 1 CAP PO TID PRN for 15 Days, #30 CAP 0 Refills Levothyroxine Sodium (Levothyroxine Sodium) 25 Mcg Tab 75 MCG PO QAM@0600 for 90 Days, #90 TAB Methylprednisolone (Medrol Dosepak) 4 Mg Sd 4 MG PO UD, #21 TAB (This prescription has been renewed) UAD Sulfamethoxazole W/Trimethopri (Bactrim Ds Tablet) 1 Tab Tb 1 TAB PO BID for 14 Days, #28 TAB Sulfamethoxazole W/Trimethopri (Bactrim Ds Tablet) 1 Tab Tb 1 TAB PO BID for 7 Days, #14 TAB 0 Refills Scheduled Acetaminophen (Acetaminophen), 500 MG PO Q4HPRN Allopurinol (Zyloprim Tablet), 300 MG PO DAILY Amoxicillin & Pot Clavulanate (Amoxicillin/Potassium Cla), 1 TAB PO BID Aspirin (Aspirin Low Dose), 81 MG PO DAILY Atorvastatin Calcium (Atorvastatin Calcium), 40 MG PO HS Cefpodoxime Proxetil (Cefpodoxime Proxetil), 1 TAB PO BID Indomethacin (Indomethacin), 50 MG PO BIDWM, (Reported) Levothyroxine Sodium (Levothyroxine Sodium), 75 MCG PO QAM@0600 Methylprednisolone (Medrol Dosepak), 4 MG PO UD Sulfamethoxazole W/Trimethopri (Bactrim Ds Tablet), 1 TAB PO BID Sulfamethoxazole W/Trimethopri (Bactrim Ds Tablet), 1 TAB PO BID Scheduled PRN Diclofenac Epolamine (Flector), 1.3 % TD TIDPRN PRN Indomethacin (Indomethacin), 1 CAP PO TID PRN Discharge Statement: "Patient was advised to return to the ER or call 911 if any headaches, dizziness, shortness of breath, chest pain, abdominal pain, bleeding, fevers, or worsening of medical condition. Patient was counseled about treatment plan, medications, possible side effects, patientverbalized understanding. All questions were answered to the best of my ability. This discharge took greater then 30 minutes in planning, reviewing documentation, counseling the patient, and discussing with other team members." ASSESSMENT ASSESSMENT Assessment 59-year-old male with a known history of morbid obesity classIII, hypertension, dyslipidemia, hypothyroidism, history of gout, rheumatoid arthritis initially presented to the hospital with a left lower extremity joint pain as well as chest pain found to have 1. Chest pain rule out [place] 2. Left upper extremity pain suspected acute gouty flare-up 3. Rheumatoid arthritis 4. Morbid obesity classIII 5. Hypothyroidism Date of Service: Feb 28, 2025 Billing Provider: GLENROY HERBERT MD Common Visit Codes: [id number] DISCH DAY >30min GLENROY HERBERT MD Feb 28, 2025 16:16
[2025-02-28 16:37] VITALS: BP 141/69; PULSE 60; RESP 21; TEMP 96.8; O2SAT 95
--- NOTE | 2025-03-01 10:25 | ECG ---
[facility] Test Date: 2025-02-27 Test Time: 02:33:42 Pat Name: IRAM RUSS Department: [facility] ED Patient ID: [facility]-[id number] Room: 0201T A Gender: M Direct Marketing Representative: MICHAEL : 1965 Requested By: YOVANNY ARNOLD Order Number: [id number] Reading MD: Jose Elias Florentino Measurements Intervals [place] Rate: 65 P: -8 NM: 155 QRS: 25 QRSD: 102 T: 85 QT: 393 QTc: 409 Interpretive Statements Sinus rhythm Borderline T abnormalities, lateral leads Baseline wander in lead(s) V1 Electronically Signed On 03-01-2025 15:26:10 PST by Jose Elias Florentino Please click the below link to view image of tracing.
--- NOTE | 2025-03-01 12:18 | ECG ---
[facility] Test Date: 2025-02-27 Test Time: 03:26:03 Pat Name: IRAM RUSS Department: [facility] ED Patient ID: [facility]-[id number] Room: 0201T A Gender: M Fire Investigation Lieutenant: MICHAEL : 1965 Requested By: DENISE ZHANG Order Number: [id number] Reading MD: Jose Elias Florentino Measurements Intervals [place] Rate: 92 P: 28 VA: 157 QRS: -3 QRSD: 113 T: 88 QT: 357 QTc: 442 Interpretive Statements Sinus rhythm Atrial premature complex Borderline intraventricular conduction delay Borderline T wave abnormalities Electronically Signed On 03-01-2025 15:26:12 PST by Jose Elias Florentino Please click the below link to view image of tracing.
== END 2025-02-28 18:56 | disposition home or self-care (01) | DRG 206 ==
LOC: ER 17:08 → OVERFLOW 23:22 → TELE-CENTR 02-27 17:49
PROVIDERS: ATTEND Emergency Medicine
DX: M94.0 Chondrocostal junction syndrome [Tietze] (principal); I24.9 Acute ischemic heart disease, unspecified; N17.9 Acute kidney failure, unspecified; E03.9 Hypothyroidism, unspecified; M06.9 Rheumatoid arthritis, unspecified; I10 Essential (primary) hypertension; E66.813 Obesity, class 3; Z68.42 Body mass index [BMI] 45.0-49.9, adult; M10.9 Gout, unspecified; E78.5 Hyperlipidemia, unspecified; Z86.73 Personal history of transient ischemic attack (TIA), and cerebral infarction without residual deficits; Z79.2 Long term (current) use of antibiotics; Z79.899 Other long term (current) drug therapy; Z82.49 Family history of ischemic heart disease and other diseases of the circulatory system; Z79.82 Long term (current) use of aspirin; Z91.148 Patient's other noncompliance with medication regimen for other reason
CPT/HCPCS: 36415; 71045; 80048; 80053; 80061; 80307; 81001; 83036; 84439; 84443; 84481; 84484; 85025; 85610; 85652; 85730; 86141; 93005; 93306; 96374; 96375; 99291; G0378; J1885; J2405